=== PATIENT | male | born 1940 | race Caucasian/White ===

== ENCOUNTER 2016-08-29 16:43 | Inpatient (IN) | payer MEDICARE ==
--- NOTE | ~2016-08-29 | A ---
[facility] Nutrition Therapy DATE: 09/10/16 Patient: FELISHA MADRID Physician: VIVIANE Address: [address] [facility] Room/Bed: [address] [place] [address], Zip: [place] [address] Admit Date: 08/30/16 Date of : 38 Height: 5 4 Weight: 200 91 NUTRITIONAL ASSESSMENT: REASON: Seen for length of stay Admitting Dx: 75 y/o male admitted with AMS, abnormal labs, skin rash, round to have UTI and MARTIR (from jail) PMH: Dementia, behavior disorder, Afib, CHF, COPD, PVD, PNA Anthropometrics: Ht: 64", admission wt: 90 kg, current wt: 91 kg, BMI: 27 (overweight) Labs: BUN 25, Creat 1.5, GFR 44.3 Meds: Na bicarb, Fe gluconate, Colace, psych meds noted I/O & Bowel function: LBM 09/08 Skin Integrity: Non-blancheable redness coccyx, intact abrasion BLE Assessment: Chart reviewed, events noted. See admitting dx and PMH as stated above. RD assessing due to length of stay. [facility] resides at jail, is on 2L nasal cannula, is a poor historian. Patient more coherent today but still confused, lethargic, disoriented. Dr. Soria is following. Patient was on a regular texture diet until yesterday 09/09 due to dysphagia and CASINO ATTENDANT recs, is now on a pureed diet with thin liquids. Patient scored 0 points on the malnutrition risk screen. Aide is feeding him lunch at this time, RN states the aide said the patient ate most of his breakfast and is doing good on lunch so far, is still eating. See RD recs below, will follow hospital course. Dx: Chewing/swallowing difficulty r/t clinical condition, AMS AEB need for pureed diet. Intervention: Diet per CASINO ATTENDANT Monitoring, Evaluation and Goals: 1. PO intake 50-100% of meals with no chewing/swallowing difficulties. 2. Prevent unintentional weight loss. 3. Improvement in BUN, creatinine, GFR. Monitor: Per protocol, criteria to determine if above goals met Recommendations: 1. Continue diet per CASINO ATTENDANT, currently requiring pureed diet. Advance diet texture as [facility] Nutrition Therapy DATE: 09/10/16 Patient: FELISHA MADRID Physician: VIVIANE Address: [address] [facility] Room/Bed: [address] [place] [address], Zip: [place] [address] Admit Date: 08/30/16 Date of : 38 Height: 5 4 Weight: 200 91 tolerated per CASINO ATTENDANT recs. 2. If PO intake declines to < 50% of meals please order Magic cup or Ensure pudding TID. RD will follow hospital course Mild-moderate nutrition risk Respectfully, Helena Hamilton RD, [facility] [employer] [facility] cc: client file
--- NOTE | ~2016-08-29 | CR21 ---
[facility] A Service of [facility] & [facility] RADIOLOGY TEXT RESULTS PATIENT: FELISHA MADRID LOCATION: [facility] 305-01 : 38 UNIT #: [id number] AGE: [address]: Ryan Varghese MD SEX: M ORDER DR: [id number] [facility] [address] [place], [place] [address] [id number] I MR#: [id number] Acc #: [id number] NAME: FELISHA MADRID : 1940 SEX: M STUDY DATE/TIME: 08/29/2016 20:22 UNIT: CEDOF ROOM: 50404 STUDY DESCRIPTION: CR Ankle Min 3 Views Rt Attending Physician: Ryan Varghese M.D. Ordering Physician: Ryan Varghese M.D. Primary Care Physician: Primary Care Physician No MEDICAL IMAGING REPORT This report is preliminary unless electronic signature is present EXAM Right ankle 3 views. HISTORY Ankle pain, weakness x1 week. Patient demented. FINDINGS 3 views of the right ankle demonstrates no acute fracture or deformity. Degenerative change is noted about the ankle. Generalized osteopenia. Ankle mortise appears maintained. Dictated by... Theresa Parker M.D. THIS IS AN ELECTRONICALLY VERIFIED REPORT Theresa Parker M.D. at 08/30/2016 2:03 PM GEORGINA/radha TD: 08/29/2016 22:25 JOB #: [id number] MEDICAL IMAGING REPORT Page 1 of 1 COPY
--- NOTE | ~2016-08-29 | CO ---
Unit #: [id number] #: [id number] Patient: SIENNA PEREZ [id number] [facility] [address] [place], [place] [address] [id number] I MR#: [id number] NAME: SIENNA PEREZ ROOM: 342 Age: 75 Sex: M Admission Date: 08/30/2016 : 1940 Attending Physician: Lor Rasmussen M.D. Primary Care Physician: Primary Care Physician No Consultation Date: 09/06/2016 CONSULTATION REPORT REASON FOR CONSULTATION Followup. DISCUSSION Mr. Sienna Perez is a 75-year-old male, seen in room 342, bed 1 on 09/06/2016 at [facility]. The patient does not have a sitter since yesterday, needing redirection but no aggression, compliant with medication, the patient is sleeping good, no side effects from medication, unable to give any coherent history, disorganized thought process. The patient's vital signs are temperature 97.8, pulse 81, respirations 17, blood pressure 151/96, oxygen saturation 94%. REVIEW OF SYSTEMS Complete review of systems unremarkable except for confusion. MENTAL STATUS EXAMINATION General appearance, the patient dressed in hospital attire. Attention span and concentration, poor. Speech, disorganized. Orientation in self. Mood and affect, labile. Thought process, circumstantial. Thought content, guarded and paranoid. Recent and remote memory, poor. Language, fair. Fund of knowledge, impaired. Insight and judgment, impaired. DIAGNOSIS Psychiatric: Major neurocognitive disorder secondary to Alzheimer disease with behavioral disturbances, F02.81. ASSESSMENT AND PLAN Supportive psychotherapy and psychoeducation provided to the patient, but the patient unable to comprehend much, explained to the nursing staff about the patient's medication and current behavior protocol. Continue with current medication. If needed, consider further adjustment of medication. Please feel free to call if any questions, telephone #[phone]. Dictated by.Marty Cardenas/yolanda TD: 09/06/2016 23:51 JOB #: [id number] Unit #: [id number] #: [id number] Patient: SIENNA PEREZ CONSULTATION REPORT Page 1 of 1 X Chavez Soria MD CONSULTATION REPORT
--- NOTE | ~2016-08-29 | CR72 ---
[facility] A Service of [facility] & [facility] RADIOLOGY TEXT RESULTS PATIENT: FELISHA MADRID LOCATION: [facility] 342-01 : 38 UNIT #: [id number] AGE: [address]: Ryan Varghese MD SEX: M ORDER DR: [id number] [facility] [address] [place], [place] [address] [id number] MR#: [id number] Acc #: [id number] NAME: FELISHA MADRID : 1940 SEX: M STUDY DATE/TIME: 08/29/2016 17:08 UNIT: [facility] ROOM: STUDY DESCRIPTION: CR Chest Single View Portable Attending Physician: Avery Samuel D.O. Ordering Physician: Avery Samuel D.O. Primary Care Physician: No Primary Care Physician MEDICAL IMAGING REPORT This report is preliminary unless electronic signature is present EXAM Portable AP view of the chest COMPARISON May 14, 2016. INDICATIONS A 75-year-old male with bilateral lower extremity edema and altered mental status today. FINDINGS Dual lead left chest pacemaker/defibrillator device appears stable. No evidence of complication. Sternotomy wires appear intact. Markers of CABG again noted. The lung volumes are diminished from comparison study with increased prominence of pulmonary interstitium. There is likely stable mild cardiomegaly. There is hazy attenuation over the left lung base which may reflect prominent breast and cardiac shadows. No evidence of pneumothorax. There is superior subluxation of both humeral heads which appear to have touched the undersurface of the acromion, perhaps artifactually related to apical lordotic positioning. IMPRESSION 1. Cardiomegaly. Changes of CABG. 2. Diminished lung volumes from comparison with increasing interstitial prominence throughout the lungs perhaps reflecting bronchovascular crowding but developing mild interstitial edema cannot be excluded. 3. Increased hazy attenuation over left lower chest which may be due to low lung volumes and prominent overlapping breast and cardiac shadows, but asymmetric edema, atelectasis, and even pneumonia cannot entirely be excluded in the left lower lobe. Similarly small left pleural effusion cannot be excluded. [facility] A Service of [facility] & [facility] RADIOLOGY TEXT RESULTS PATIENT: FELISHA MADRID LOCATION: [facility] 342-01 : 38 UNIT #: [id number] AGE: [address]: Ryan Varghese MD SEX: M ORDER DR: Dictated by... Garrett Pace M.D. THIS IS AN ELECTRONICALLY VERIFIED REPORT Garrett Pace M.D. at 09/03/2016 10:21 AM Leela TD: 08/29/2016 20:50 JOB #: [id number] MEDICAL IMAGING REPORT Page 1 of 1 COPY
--- NOTE | ~2016-08-29 | CO ---
Unit #: [id number] #: [id number] Patient: SIENNA PEREZ [id number] [facility] [address] [place], [place] [address] [id number] I MR#: [id number] NAME: SIENNA PEREZ ROOM: 342 Age: 75 Sex: M Admission Date: 08/30/2016 : 1940 Attending Physician: Lor Rasmussen M.D. Primary Care Physician: Primary Care Physician No Consultation Date: 09/08/2016 CONSULTATION REPORT REASON FOR CONSULTATION Followup. DISCUSSION Mr. Sienna Perez is a 75-year-old white male, seen in room 342, bed 1 on 09/08/2016 at [facility]. The patient was able to talk more coherently, but still confused. The patient's vital signs stable, redirectable, cooperative, no aggression. Vital signs; temperature 98.1, pulse 80, respiratory rate 18, blood pressure 150/79, oxygen saturation 94%. The patient was concerned about unable to walk due to the bandages and pain in his both bilateral feet. The patient did not show any aggression. REVIEW OF SYSTEMS Complete review of systems unremarkable except as mentioned above. MENTAL STATUS EXAMINATION General appearance, the patient dressed in hospital attire, lying comfortably in bed, made good eye contact. Attention span and concentration, poor. Speech, rapid but somewhat more coherent. Oriented in self. Mood and affect, labile. Thought process, circumstantial. Thought content, guarded, paranoid, but no aggressive behavior. Recent and remote memory, poor. Language, fair. Fund of knowledge, impaired. Insight and judgment, impaired. DIAGNOSIS Psychiatric: Major neurocognitive disorder secondary to Alzheimer disease with behavioral disturbances, F02.81. ASSESSMENT AND PLAN Recommending at this time to continue with current medication combination and we will consider adjusting if needed. Please feel free to call if any questions, telephone #[phone]. Dictated by... Chavez Soria M.D. RICHIE/yolanda TD: 09/10/2016 00:35 JOB #: [id number] Unit #: [id number] #: [id number] Patient: SIENNA PEREZ CONSULTATION REPORT Page 1 of 1 X Chavez Soria MD CONSULTATION REPORT
--- NOTE | ~2016-08-29 | US140 ---
[facility] A Service of [facility] & [facility] RADIOLOGY TEXT RESULTS PATIENT: FELISHA MADRID LOCATION: [facility] 342- : 38 UNIT #: [id number] AGE: [address]: Ryan Varghese MD SEX: M ORDER DR: [id number] [facility] [address] [place], [place] [address] [id number] I MR#: [id number] Acc #: [id number] NAME: FELISHA MADRID : 1940 SEX: M STUDY DATE/TIME: 09/01/2016 22:13 UNIT: [address] ROOM: [facility] STUDY DESCRIPTION: US UE Veins Unilat or Ltd Stdy Attending Physician: Ryan Varghese M.D. Ordering Physician: Lillie Cohen M.D. Primary Care Physician: Primary Care Physician No MEDICAL IMAGING REPORT This report is preliminary unless electronic signature is present EXAM Right upper extremity venous ultrasound HISTORY Right upper extremity swelling and redness for 1 day FINDINGS The venous system of the right upper extremity was evaluated with zayas-scale imaging, color flow Doppler and compression ultrasound where possible. The distal cephalic vein shows thrombosis. The other veins are all patent. IMPRESSION There is superficial venous thrombosis in the mid cephalic vein. Otherwise, the study is normal. Dictated by... Kenyon Chavez M.D. THIS IS AN ELECTRONICALLY VERIFIED REPORT Kenyon Chavez M.D. at 09/02/2016 9:56 PM FEL/to TD: 09/02/2016 17:40 JOB #: [id number] MEDICAL IMAGING REPORT Page 1 of 1 COPY
--- NOTE | ~2016-08-29 | CO ---
Unit #: [id number] #: [id number] Patient: SIENNA PEREZ [id number] [facility] [address] [facility]. [place], [place] [address] [id number] I MR#: [id number] NAME: SIENNA PEREZ ROOM: 342 Age: 75 Sex: M Admission Date: 08/30/2016 : 1940 Attending Physician: Ryan Varghese M.D. Consultation Date: 09/11/2016 CONSULTATION REPORT REASON FOR CONSULTATION Followup. DISCUSSION Mr. Sienna Perez is a 75-year-old male, seen on 09/11/2016, seen in room 342, bed 1 at [facility]. The patient was compliant, cooperative, redirectable, but still confused and guarded. The patient unable to give any reliable information. Vital signs; temperature 98, pulse 79, respirations 18, blood pressure 131/85, oxygen saturation 93%. The patient did not require any seclusion holding, compliant with medication. No side effects from medication. The patient's older adult social work specialist is currently working on placement. Message was sent to [facility]. REVIEW OF SYSTEMS Complete review of systems is unremarkable. MENTAL STATUS EXAMINATION General appearance; the patient dressed in hospital attire. Vital signs; temperature 98, pulse 79, respirations 18, blood pressure 131/85, oxygen saturation 93%. Attention span and concentration, poor. Speech, rambling. Oriented in self. Mood and affect, labile. Thought process, circumstantial. Thought content, guarded and paranoid. Recent and remote memory, poor. Language, fair. Fund of knowledge, impaired. Insight and judgment, impaired. DIAGNOSIS Psychiatric: Major neurocognitive disorder secondary to Alzheimer disease with behavioral disturbances, F02.81. ASSESSMENT AND PLAN Advised at this time to continue with current combination of medication. We will closely monitor. If needed, consider further adjustment of medication. The patient is currently on Remeron, melatonin, Risperdal. No side effects from medication. The patient has p.r.n. haloperidol. If needed, we will use. Please feel free to call if any questions telephone #[phone]. Dictated by... Chavez Soria M.D. RICHIE/yolanda Unit #: [id number] #: [id number] Patient: MERCYSIENNA TD: 09/12/2016 01:35 JOB #: [id number] CONSULTATION REPORT Page 1 of 1 X Chavez Soria MD CONSULTATION REPORT
--- NOTE | ~2016-08-29 | CO ---
Unit #: [id number] #: [id number] Patient: FELISHA PEREZ [id number] [address] [place], [place] [address] [id number] I MR#: [id number] NAME: FELISHA PEREZ ROOM: 342 Age: 75 Sex: M Admission Date: 08/30/2016 : 1940 Attending Physician: Ryan Varghese M.D. Primary Care Physician: Primary Care Physician No Consultation Date: 08/30/2016 CONSULTATION REPORT REASON FOR CONSULTATION Confusion, altered mental status. HISTORY OF PRESENT ILLNESS Mr. Gary Perez is a 75-year-old white male, seen in room 305, bed 1 on 08/30/2016. The patient is a resident of care home and transferred because of acute kidney injury, urinary tract infection, confusion, altered mental status. The patient's thoughts were disorganized, guarded, and paranoid. The patient was aggressive, needed Haldol 10 mg, Cogentin 1 mg, Ativan 1 mg last night. The patient's behavior was belligerent, disorganized behavior, disorganized thought process, impulsive, mood lability, unable to give any reliable information. PAST PSYCHIATRIC HISTORY Remarkable for history of dementia. MEDICAL HISTORY The patient has sepsis, skin rash, concerns about deep venous thrombosis, acute kidney injury, history of chronic diastolic heart failure, history of foot injury, considering delirium, benign prostatic hypertrophy, hyperlipidemia, and COPD. MEDICATIONS The patient is on lisinopril, metoprolol, Proventil, aspirin, divalproex 250 mg b.i.d., finasteride, hydrocodone/Tylenol, Combivent, MiraLax, Seroquel 12.5 mg by mouth every night, Senokot. ALLERGIES No known drug allergies. FAMILY HISTORY AND SOCIAL HISTORY The patient is a resident of care home. No known history of any abuse. No history of any substance abuse. REVIEW OF SYSTEMS Complete review of systems is remarkable for agitation and aggression, otherwise unremarkable. MENTAL STATUS EXAMINATION General appearance, the patient dressed in hospital attire, somewhat disheveled. Attention span and concentration, poor. Speech, rapid and rambling. Orientation in self. Mood and affect, labile. Thought process, circumstantial. Thought content, guarded and paranoid. Recent and remote memory, poor. Language, the patient has rambling speech and Unit #: [id number] #: [id number] Patient: FELISHA PEREZ fair language. Fund of knowledge, poor. Insight and judgment, impaired. DIAGNOSES Psychiatric: Delirium, F05; probable major neurocognitive disorder secondary to Alzheimer disease with behavioral disturbances, F02.81. Secondary diagnosis: Deferred. Medical diagnosis: Please refer to H and P. Stressors: Psychosocial stressor. ASSESSMENT AND PLAN 1. Supportive psychotherapy and psychoeducation provided to the patient, but the patient unable to comprehend much. 2. Advised at this time to continue with current treatment with a plan to start the patient on Risperdal 1 mg b.i.d. and Haldol 5 mg q.4 p.r.n. for severe agitation and psychosis. Please feel free to call if any questions, telephone #[phone]. Dictated by... Marty Milian/yolanda TD: 09/01/2016 04:02 JOB #: [id number] CONSULTATION REPORT Page 1 of 1 X Chavez Soria MD X CONSULTATION REPORT
--- NOTE | ~2016-08-29 | XA166 ---
[facility] A Service of [facility] & [facility] RADIOLOGY TEXT RESULTS PATIENT: FELISHA MADRID LOCATION: [facility] 342- : 38 UNIT #: [id number] AGE: [address]: Ryan Varghese MD SEX: M ORDER DR: [id number] [facility] [address] [place], [place] [address] [id number] I MR#: [id number] Acc #: [id number] NAME: FELISHA MADRID : 1940 SEX: M STUDY DATE/TIME: 09/12/2016 15:32 UNIT: C3A PCU ROOM: [facility] STUDY DESCRIPTION: XA PICC Line Placement WO Port Attending Physician: Ryan Varghese M.D. Ordering Physician: Ryan Varghese M.D. Primary Care Physician: No Primary Care Physician MEDICAL IMAGING REPORT This report is preliminary unless electronic signature is present EXAM PICC placement with ultrasound and fluoroscopic guidance 09/12/2016 HISTORY Venous access needed for medication. TECHNIQUE The procedure was explained to the patient's counter sales representative. Informed consent was obtained from patient's family. Full barrier sterile technique was employed via standard protocol. Using full barrier sterile technique and following local anesthesia with 1% Xylocaine, a brachial vein was punctured above the elbow on the right with ultrasound guidance. Ultrasound was used to confirm vessel patency which was confirmed and permanent ultrasound images were recorded. An 0.018 guidewire was passed into the superior vena cava under fluoroscopic guidance. A dilator and sheath were placed over the wire. A 4-Hong Konger single-lumen PICC was measured to 41 cm, cut and deployed with the tip positioned at the cavoatrial junction. The line was secured in place with an antibiotic patch and adhesive dressing. Total fluoroscopy time 0.2 minutes with a total dose of 2 mGy. IMPRESSION Successful placement of a 4-H[place] Konger single-lumen PICC via the right brachial vein above the elbow with ultrasound and fluoroscopic guidance. Dictated by... Momo Jimenes M.D. THIS IS AN ELECTRONICALLY VERIFIED REPORT Momo Jimenes M.D. at 09/13/2016 10:23 PM RLJunior/fortino [facility] A Service of [facility] & [facility] RADIOLOGY TEXT RESULTS PATIENT: FELISHA MADRID LOCATION: [facility] 342-01 : 38 UNIT #: [id number] AGE: [address]: Ryan Varghese MD SEX: M ORDER DR: TD: 09/12/2016 18:24 JOB #: [id number] MEDICAL IMAGING REPORT Page 1 of 1 COPY
--- NOTE | ~2016-08-29 | US84 ---
[id number] [facility] [address] [place], [place] [address] [id number] I MR#: [id number] Acc #: [id number] NAME: FELISHA MADRID : 1940 SEX: M STUDY DATE/TIME: 08/30/2016 8:18 UNIT: C3A PCU ROOM: 305 STUDY DESCRIPTION: US LE Veins Complete Edwardo Stdy Attending Physician: Ryan Varghese M.D. Ordering Physician: Ryan Varghese M.D. Primary Care Physician: Primary Care Physician No MEDICAL IMAGING REPORT This report is preliminary unless electronic signature is present EXAM Bilateral lower extremity venous duplex, 08/30/2016 HISTORY Bilateral lower extremity edema for 2 days. Evaluate for deep vein thrombosis. TECHNIQUE Venous ultrasound examination of both lower extremities was performed using grayscale, spectral Doppler and color flow Doppler imaging. FINDINGS The examination is negative. There is no evidence of deep venous thrombus from the groin to the lower calf bilaterally. Visualized greater saphenous veins are also patent. IMPRESSION Negative examination. No evidence of bilateral lower extremity deep venous thrombosis. Dictated by... Jc Yadav M.D. THIS IS AN ELECTRONICALLY VERIFIED REPORT Jc Yadav M.D. at 08/31/2016 9:33 AM ANTIONETTE/lilli TD: 08/30/2016 11:29 JOB #: [id number] MEDICAL IMAGING REPORT Page 1 of 1 COPY
--- NOTE | ~2016-08-29 | HP ---
Unit #: [id number] #: [id number] Patient: FELISHA MADRID [id number] [address] [place], [place] [address] [id number] I MR#: [id number] NAME: FELISHA MADRID ROOM: 60698 Age: 75 Sex: M Admission Date: 08/29/2016 : 1940 Attending Physician: Ryan Varghese M.D. HISTORY AND PHYSICAL CHIEF COMPLAINT Altered mental status, abnormal labs, skin rash. HISTORY OF PRESENTING ILLNESS Patient is a 75-year-old man who is a resident of a snf who was transferred because of acute kidney injury, urinary tract infection, and altered mental status. The patient is a poor historian. He is confused and unable to provide a history. All the history is obtained by reviewing the records and by talking to the ER staff. Patient has a past medical history of dementia, atrial fibrillation, COPD, congestive heart failure, chronic indwelling Brito catheter secondary to benign prostatic hypertrophy, peripheral vascular disease, history of coronary artery disease, and history of acute on chronic diastolic heart failure, who was transferred from the snf mainly because his creatinine had jumped up, and he was noted to have a petechial rash in the right lower extremity. He is agitated. There was also a concern for a DVT in the right leg, and for further evaluation, an ultrasound was attempted. Apparently, patient was belligerent, and he was combative, and unfortunately an ultrasound was not done so far. On initial evaluation, urinalysis showed enumerable WBCs, and his creatinine was noted to be high up to 2.1, whereas his baseline creatinine is 1 in April 2016, and for altered mental status, urinary tract infection, and sepsis, he is getting admitted. PAST MEDICAL HISTORY As per the records from [facility], history of COPD, history of diastolic heart failure, acute on chronic, history of pneumonia, history of peripheral vascular disease, coronary artery disease, history of acute cystitis, history of BPH with a chronic indwelling Brito catheter, atrial fibrillation, COPD, and dementia. MEDICATIONS I am trying to get a list of his medications from the snf. The medications from the [facility] where he was hospitalized in June include ferrous sulfate 325 mg p.o. daily, lisinopril 10 mg daily, metoprolol 100 mg daily, Proventil 90 mcg inhaler twice daily, aspirin 81 mg daily, Lipitor 40 mg daily, budesonide and formoterol 160/4.5 mcg twice daily, divalproex 250 mg by mouth twice daily, Colace 2 tabs daily, finasteride 5 mg by mouth daily, hydrocodone/Tylenol 5/325 at 1 tab q.6 p.r.n., Combivent, melatonin 3 mg daily, Lasix 40 mg daily, MiraLax 17 grams daily, Seroquel 25 mg, 12.5 mg by mouth every night, Senokot 2 tabs daily, and Flomax 0.4 mg daily. Unit #: [id number] #: [id number] Patient: FELISHA MADRID ALLERGIES I did not find a list of his allergies. Will try to get more records from the snf. SOCIAL HISTORY He is a resident of a snf. REVIEW OF SYSTEMS Unobtainable. PHYSICAL EXAMINATION VITAL SIGNS: Temperature 97.4, pulse rate 85, respiratory rate 16, and blood pressure 154/91. GENERAL: Patient is agitated, alert only to his name. HEENT: Normocephalic and atraumatic. No icterus. Pupils are equal, round, and reactive to light and accommodation. Extraocular muscles intact. NECK: Supple. No JVD. HEART: S1 and S2, regular rate and rhythm. CHEST: Bilateral equal air entry, clear to auscultation. ABDOMEN: Soft and nontender. EXTREMITIES: Normal peripheral pulses. He does have a petechial rash on both the lower extremities and mild edema. DIAGNOSTIC STUDIES LABORATORY: Glucose 90, BUN 46, creatinine 2.1, sodium 137, potassium 3.8, chloride 101, and bicarb 29. WBC 9.9, hemoglobin 10.4, and platelet count is 192,000 with 75% neutrophils and 16.6 lymphocytes. Urinalysis shows leukocyte esterase 3+, nitrite positive, 2+ protein, and enumerable WBCs. ASSESSMENT AND PLAN 1. Sepsis secondary to urinary tract infection, possibly gram negative organisms secondary to chronic indwelling Brito catheter. Will send blood cultures and urine cultures. Empirically start him on levofloxacin. Will dose him renally and monitor. 2. Skin rash. I think it could be secondary to sepsis at this point. Will start him on levofloxacin and monitor. If the rash does not improve, will consider obtaining a Dermatology evaluation. 3. Concern for deep venous thrombosis. Will try to sedate him and try to get an ultrasound of the lower extremities. Will start him empirically on therapeutic Lovenox. Will review and ultrasound and stop if it is negative. 4. Acute kidney injury. I am holding his Lasix. I will hold his VITALY inhibitors. Will start him gently on fluids and monitor. Kindly note, he also has heart failure. Will try to be cautious not to overload him with fluids. 5. History of acute on chronic diastolic heart failure. Will be gentle with the IV fluids. 6. Concern for foot injury. Will check x-rays of the feet to make sure there is no fracture. 7. Delirium with dementia, possibly his baseline versus secondary to urinary tract infection. Will also consult Psychiatry. Will continue with his Seroquel and monitor. 8. Benign prostatic hypertrophy, currently with a Brito catheter. Possibly may need to change the catheter. Will consult Urology. 9. Deep venous thrombosis precautions. 10. Hyperlipidemia. Continue with statin. Unit #: [id number] #: [id number] Patient: FELISHA MADRID 11. History of chronic obstructive pulmonary disease, currently stable. 12. Further recommendations per hospital course. Dictated by Marty Johnson/emma TD: 08/29/2016 21:49 JOB #: [id number] HISTORY AND PHYSICAL Page 1 of 1 X X HISTORY AND PHYSICAL
--- NOTE | ~2016-08-29 | CO ---
Unit #: [id number] #: [id number] Patient: FELISHA PEREZ [id number] [facility] [address] [facility]. [place], [place] [address] [id number] I MR#: [id number] NAME: FELISHA PEREZ ROOM: 342 Age: 75 Sex: M Admission Date: 08/30/2016 : 1940 Attending Physician: Ryan Varghese M.D. Primary Care Physician: No Primary Care Physician Consultation Date: 09/12/2016 CONSULTATION REPORT REASON FOR CONSULTATION Followup. DISCUSSION Mr. Gary Perez is a 75-year-old white male seen in room 342, bed 1, on 09/12/2016 at [facility]. The patient has a history of dementia, admitted with urinary tract infection and sepsis. The patient is making progress. No seclusion holdings or any restraints. Compliant with medications, but still with confusion, but redirectable easily. Vitals are 98.4, 74, 20, 148/100, oxygen saturation 94%. The patient will be going to [facility] today. No side effects from medication. Complete review of systems is unremarkable. MENTAL STATUS EXAMINATION General appearance, the patient is dressed in hospital attire, lying comfortably in bed. Attention span and concentration poor. Speech disorganized. Rambling. Orientation to self. Mood and affect labile. Thought process circumstantial. Thought content guarded. Recent and remote memory poor. Language poor. Fund of knowledge impaired. Insight and judgment impaired. 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 F02.81. ASSESSMENT/PLAN Recommending at this time to continue with the current medication. The patient is to continue with Valproic acid 50 mg q.8 h., Remeron 50 mg at bedtime, haloperidol 5 mg q.4 h. p.r.n. psychosis, Seroquel 12.5 mg at bedtime, Risperdal 1 mg b.i.d. If needed, consider further adjustment of medication. Please feel free to call. Dictated by... Marty Milian TD: 09/13/2016 08:13 JOB #: [id number] Unit #: [id number] #: [id number] Patient: RODRIGO PEREZEDAJanette CONSULTATION REPORT Page 1 of 1 X Chavez Soria MD CONSULTATION REPORT
--- NOTE | ~2016-08-29 | DS ---
Unit #: [id number] #: [id number] Patient: FELISHA MADRID [id number] [address] [place], [place] [address] [id number] I MR#: [id number] NAME: FELISHA MADRID ROOM: [facility] Age: 75 Sex: M Admission Date: 08/30/2016 : 1940 Discharge Date: 09/12/2016 Attending Physician: Ryan Varghese M.D. Primary Care Physician: Sarah Primary Care Physician DISCHARGE SUMMARY ADDENDUM ADMITTING DIAGNOSES 1. Sepsis secondary to methicillin-resistant Staphylococcus aureus urinary tract infection. 2. Enterobacter bacteremia. 3. Chronic urinary retention. 4. Dementia with agitation. 5. Acute kidney injury. 6. History of atrial fibrillation. 7. History of congestive heart failure. 8. Peripheral vascular disease. 9. Benign prostatic hypertrophy. Kindly note there is a discharge summary dictated by Dr. Rasmussen and this is an addendum to the previous discharge summary. CONSULTANTS 1. Dr. Sigifredo Islas, lan administrator. 2. Dr. Tera Herbert, Infectious Disease. 3. Dr. Chavez Soria, Psychiatry. HISTORY OF PRESENTING ILLNESS The patient is a 75-year-old man who is a resident of group home, was transferred because of acute kidney injury, urinary tract infection and altered mental status. The patient is a poor historian. He is confused and unable to provide any history. In the initial workup, his creatine was high up to 2.1. He was noted to have a urinary tract infection and he was started on antimicrobials and judd cultures were obtained. HOSPITAL COURSE The further workup revealed him having an Enterococcal bacteremia. He also had a urinary tract infection with MRSA. He developed nephrotoxicity with vancomycin and tobramycin while he was getting treated for Enterococcal bacteremia and his tobramycin was stopped. Currently, with vancomycin, his creatinine is around 1.7, 1.6. Nephrology was following the patient. A transesophageal echocardiogram was attempted and unsuccessful secondary to his agitation and confusion. ID recommended to continue with vancomycin until the September. While he is on vancomycin, he needs to get his BMP checked every three days and, if the creatinine is beyond 1.8, the plan is to switch to daptomycin in case if he develops nephrotoxicity secondary to vancomycin. I am unable to reach the family today. I spoke with the patient's nurse. He is at his baseline in his mental status. Unit #: [id number] #: [id number] Patient: FELISHA MADRID On the day of the discharge, his physical examination: GENERAL APPEARANCE: The patient is alert, confused. VITAL SIGNS: Temperature 98.6. Pulse rate 82. Respirations 20. Blood pressure 158/100. HEENT: Normocephalic, atraumatic. No icterus. PERRLA. Extraoculars intact. NECK: Supple. No JVD. HEART: S1, S2 regular. CHEST: Bilateral equal air entry. Clear to auscultation. ABDOMEN: Soft, nontender. EXTREMITIES: No edema. Normal pulses. DISCHARGE MEDICATIONS 1. Proventil two puffs q.4 p.r.n. for shortness of breath. 2. Combivent 3 mL q.4 p.r.n. for shortness of breath. 3. Pulmicort 0.5 mg nebulization twice a day. 4. Perforomist 20 mcg twice a day. 5. Sodium bicarb 650 mg p.o. three times a day. 6. Flomax 0.4 mg at bedtime. 7. Tylenol p.r.n. 8. Lovenox 30 mg subcu daily. 9. Valproic acid 250 mg p.o. q.8 hours. 10. Remeron 15 mg at bedtime. 11. Vancomycin until the September. 12. Hydralazine 50 mg p.o. q.8 hours. 13. Ferrous sulfate 325 mg p.o. daily. 14. Proscar 5 mg p.o. daily. 15. Melatonin 3 mg at bedtime. 16. Aspirin 81 mg daily. 17. Haldol 5 mg q.4 p.r.n. for psychosis. 18. Seroquel 12.5 mg p.o. at bedtime. 19. Risperdal 1 mg p.o. twice a day. 20. Metoprolol 100 mg p.o. twice a day. 21. Colace 100 mg twice a day. 22. Lipitor 40 mg at bedtime. 23. Clonidine 0.2 mg p.o. twice a day. He will be discharged to rehab today for further care. Total time spent in his care 35 minutes. I did talk to Dr. Islas. He is agreeable for placement of PICC line and will request the rehab to remove the PICC line after he is done with the antimicrobials. The patient needs to follow up with Dr. Islas as an outpatient for his chronic kidney disease. Dictated by... Marty Johnson TD: 09/12/2016 13:45 JOB #: [id number] Unit #: [id number] #: [id number] Patient: FELISHA MADRID DISCHARGE SUMMARY Page 1 of 1 X X DISCHARGE SUMMARY
--- NOTE | ~2016-08-29 | CO ---
Unit #: [id number] #: [id number] Patient: FELISHA MADRID [id number] [address] [place], [place] [address] [id number] I MR#: [id number] NAME: FELISHA MADRID ROOM: 342 Age: 75 Sex: M Admission Date: 08/30/2016 : 1940 Attending Physician: Lor Rasmussen M.D. Primary Care Physician: No Primary Care Physician Consultation Date: 09/05/2016 CONSULTATION REPORT REASON FOR CONSULTATION Enterococcal bacteremia. HISTORY OF PRESENT ILLNESS This is a 75-year-old male who is unable to provide any history as he appears to be confused. Patient states to me, "watch out for the tank behind you." Patient is a senior care resident and was admitted to the hospital for acute kidney injury, urinary tract infection, altered mental status, however, it was noted that patient has a history of dementia as well. Patient was not having any fever or leukocytosis but workup showed MRSA UTI and Enterococcal bacteremia that has been persistent. Repeat blood cultures are currently pending and ID was asked to evaluate. On admission he was noted to have some rash over the lower extremities. PAST MEDICAL HISTORY Includes atrial fibrillation, COPD, congestive heart failure, chronic indwelling Brito catheter secondary to BPH, peripheral vascular disease, coronary artery disease, heart failure. ALLERGIES Penicillin with unknown reaction, codeine, and fish derivative. MEDICATIONS Vancomycin and tobramycin. Further medications please refer to patient's MAR. SOCIAL HISTORY The patient lives in a senior care, otherwise unknown. REVIEW OF SYSTEMS Unobtainable secondary to patient's current mental status. PHYSICAL EXAMINATION VITAL SIGNS: Temperature 98.2, pulse 78, blood pressure 121/57, respiratory rate 18. GENERAL: This is a no apparent distress male who appears confused, sitting in bed. HEENT: His pupils are equal. NECK: Supple. CARDIOVASCULAR: S1 and S2. Regular rate and rhythm. PULMONARY: Clear to auscultation bilaterally with no wheezes or rhonchi noted. ABDOMEN: Positive bowel sounds, soft and nontender. EXTREMITIES: No clubbing, cyanosis or edema. No significant rashes Unit #: [id number] #: [id number] Patient: FELISHA MADRID noted. He has no significant sacral wound or other nonhealing wounds. DIAGNOSTIC STUDIES LABS: BUN 29, creatinine 1.6, which is improved from 2.1, sodium 139, potassium 3.7, chloride 111, CO2 21, bilirubin 0.5, AST 24, ALT 13. BNP not checked. Lactic acid 1.5, White blood cell count 7.0, hemoglobin 9.4, hematocrit 30.1, platelets 162. Urinalysis shows enumerable WBC with positive rbc's, 3+ leuks, positive nitrates. Cultures reveal Enterococcus 2/2 sets on 08/29/2016 with MRSA in the urine. 08/31/2016 blood culture 1 of 2 with enterococcus and blood cultures from 09/04/2016 are currently pending. IMAGING STUDIES: Shows a super venous thrombosis in the cephalic vein, otherwise negative ultrasound of both the upper and lower extremities. Chest x-ray shows cardiomegaly, bronchovascular crowding with interstitial edema not excluded. CARDIOLOGY STUDIES: 2D echo shows no vegetation noted. Mild to moderate aortic regurg, mild to moderate MR, mild tricuspid regurg, pacer in AICD leads noted. IMPRESSION This is a 75-year-old senior care resident who came to the hospital with worsening mental status changes and acute kidney injury, found to have an MRSA urinary tract infection, as well as multiple blood cultures for Enterococcus. At this time the 2D echocardiogram was negative, however, will likely recommend that patient have a REGAN to rule out pacemaker endocarditis or valvular endocarditis secondary to enterococcus. The patient has benign abdominal exam, however, due to the presence of persistent enterococcus bacteremia, would recommend a CT scan with p.o. contrast only due to patient's kidney function to evaluate any abscess or source of bacteremia. Patient's kidney injury does make it difficult for antibiotic selection. He also has a penicillin allergy and it is unknown if patient can take any betalactamase. Will continue to pulse dose vancomycin until further information is done regarding his penicillin allergy, an alternative regimen for his enterococcal bacteremia could be ampicillin and ceftriaxone. This case will be discussed in detail with Dr. Tera Herbert, who will evaluate this patient today, and further recommendations to follow pending patient's clinical course. Dictated by... Lottie Russo A.P.R.N. for Marty Amado/alexis TD: 09/05/2016 12:39 JOB #: [id number] Unit #: [id number] #: [id number] Patient: FELISHA MADRID CONSULTATION REPORT Page 1 of 1 X X CONSULTATION REPORT
--- NOTE | ~2016-08-29 | CO ---
Unit #: [id number] #: [id number] Patient: FELISHA MADRID [id number] [address] [place], [place] [address] [id number] I MR#: [id number] NAME: FELISHA MADRID ROOM: 342 Age: 75 Sex: M Admission Date: 08/30/2016 : 1940 Attending Physician: Lor Rasmussen M.D. Primary Care Physician: Primary Care Physician No Consultation Date: 09/07/2016 CONSULTATION REPORT REASON FOR CONSULTATION Elevated creatinine level. HISTORY OF PRESENT ILLNESS The patient is a 75-year-old white male, transferred to the hospital with sepsis. Blood cultures positive for Enterococcus and MRSA UTI. The patient has also known to have paroxysmal atrial fibrillation, peripheral vascular disease, history of BPH, history of congestive heart failure. The baseline creatinine previously has ranged around 1 to 1.5. Currently, the creatinine level is 1.5. The patient is not noted to be on any VITALY inhibitors. No use of NSAIDs. No recent IV contrast. The history is not reliably available. The patient currently has been started on IV vancomycin and the level is noted to be 19. The previously noted ejection fraction has been around 15% to 20% on echocardiogram. The patient has been started on IV fluids. The tobramycin level is elevated at 3.4 on 09/05/2016, which has now been discontinued. PAST MEDICAL HISTORY Significant for; 1. Congestive heart failure, ejection fraction 15% to 20%. 2. Chronic atrial fibrillation. 3. COPD. 4. History of BPH with indwelling Brito on a chronic basis. 5. Peripheral vascular disease. 6. Coronary artery disease. 7. CKD with likely underlying chronic kidney disease stage 3 secondary to hypertensive nephrosclerosis, although at risk of paraproteinemia. ALLERGIES Penicillin and codeine. MEDICATIONS Previously noted tobramycin and vancomycin. SOCIAL HISTORY The patient is a care home resident. REVIEW OF SYSTEMS Not reliably available. The patient is confused. PHYSICAL EXAMINATION VITAL SIGNS: Significant for temperature of 98.2, pulse 78 per minute, and blood pressure 121/57. HEENT: Head is atraumatic. Extraocular movements are intact. Unit #: [id number] #: [id number] Patient: FELISHA MADRID NECK: Supple. There is no elevation of JVD. CHEST: Clear. Air entry is equal bilaterally. Breathing is vesicular in nature. HEART: S1 and S2 audible. There is no S3, no S4. ABDOMEN: Soft. There is no organomegaly. No guarding. No rigidity. No rebound tenderness. EXTREMITIES: There is 1+ edema. DIAGNOSTIC STUDIES LABORATORY RESULTS: Admission creatinine level is 2.1 with BUN of 29, sodium 139, potassium 3.7, chloride 111, CO2 of 21, bilirubin is 0.5. Lactic acid is 1.5. WBC 7, hemoglobin 9, hematocrit 30, platelets 162. Urinalysis with positive nitrites. Blood culture, previously Enterococcus with urine MRSA. IMPRESSION 1. Acute kidney injury at high risk of developing vancomycin and tobramycin toxicity. Currently, renal function is stable. We will gently hydrate and then discontinue since the patient has significant underlying cardiomyopathy. 2. CMP. 3. Atrial fibrillation. 4. Enterococcus sepsis. 5. Methicillin-resistant Staphylococcus aureus urinary tract infection. Dictated by... Marty Campoverde TD: 09/09/2016 02:41 JOB #: [id number] CONSULTATION REPORT Page 1 of 1 X Sigifredo Islas MD X CONSULTATION REPORT
--- NOTE | ~2016-08-29 | CO ---
Unit #: [id number] #: [id number] Patient: SIENNA PREEZ [id number] [facility] [address] [facility]. [place], [place] [address] [id number] I MR#: [id number] NAME: SIENNA PEREZ ROOM: 342 Age: 75 Sex: M Admission Date: 08/30/2016 : 1940 Attending Physician: Lor Rasmussen M.D. Primary Care Physician: Primary Care Physician No Consultation Date: 09/04/2016 CONSULTATION REPORT REASON FOR CONSULTATION Followup. DISCUSSION Mr. Sienna Perez is a 75-year-old male, seen in room 342, bed 1 on 09/04/2016 at [facility]. The patient has a sitter. Cooperative, redirectable, but disorganized thought process and behavior, confused, but needing redirection. The patient is compliant with medication, but still having some difficulty in taking medication. The patient was unable to give any coherent history. Obtained information from nursing staff and sitter. The patient's vital signs; temperature 97.9, pulse 79, respirations 18, blood pressure 150/75, oxygen saturation 95%. REVIEW OF SYSTEMS Complete review of systems is unremarkable except for confusion and agitation. MENTAL STATUS EXAMINATION General appearance; the patient dressed casually in hospital attire. Hygiene and grooming, fair to poor. Attention span and concentration, poor. Speech; rapid, disorganized. Oriented in self. Mood and affect, labile. Thought process, circumstantial. Thought content; guarded, paranoid, unable to answer question about suicidal or homicidal ideation. Recent and remote memory, poor. Language, poor. Fund of knowledge, impaired. Insight and judgment, impaired. DIAGNOSIS Psychiatric: Major neurocognitive disorder secondary to Alzheimer disease with behavioral disturbances, F02.81. ASSESSMENT AND PLAN Advised to continue with current medication and one-on-one monitoring for safety of the patient. Continue with current medication. If needed, consider further adjustment of medication. Please feel free to call if any questions, telephone #[phone]. Dictated by... Marty Milian/yolanda TD: 09/06/2016 02:55 Unit #: [id number] #: [id number] Patient: SIENNA PEREZ JOB #: [id number] CONSULTATION REPORT Page 1 of 1 X Chavez Soria MD CONSULTATION REPORT
--- NOTE | ~2016-08-29 | CO ---
Unit #: [id number] #: [id number] Patient: FELISHA PEREZ [id number] [address] [place], [place] [address] [id number] I MR#: [id number] NAME: FELISHA PEREZ ROOM: [facility] Age: 75 Sex: M Admission Date: 08/30/2016 : 1940 Attending Physician: Ryan Varghese M.D. Primary Care Physician: Primary Care Physician No Consultation Date: 08/31/2016 CONSULTATION REPORT REASON FOR CONSULTATION Followup. DISCUSSION Mr. Gary Perez is a 75-year-old white male, seen in room 305, bed 1 on 08/31/2016. The patient was in bilateral hand restraints. The patient continues to try to pull tubes, agitated, aggressive, impulsive. The patient needed restraint for safety. Unable to give any reliable information. Vital signs; temperature 98.8, pulse 80, respirations 18, blood pressure 150/86, oxygen saturation 92#. The patient has not shown much improvement with current medication. The patient's sister has a power of hospital account liaison. REVIEW OF SYSTEMS Complete review of systems is unremarkable. MENTAL STATUS EXAMINATION General appearance; the patient dressed in hospital attire, needing bilateral restraints, disorganized thought process, disorganized behavior. Attention span and concentration, poor. Speech, rambling. Orientation in self. Mood and affect, labile. Thought process, circumstantial. Thought content; guarded, paranoid, but denied any thoughts of harming self or others. Recent and remote memory, poor. Language is fair. Fund of knowledge, impaired. Insight and judgment, impaired. DIAGNOSES Psychiatric: Delirium, F05; major neurocognitive disorder secondary to Alzheimer disease with behavioral disturbances, F02.81. ASSESSMENT/PLAN Advised to continue with current medication and therapeutic protocol. If needed, consider further adjustment of medication. Explained to the nursing staff to use haloperidol p.r.n. for agitation, psychosis. The patient is currently on Remeron and Risperdal. If needed, consider further adjustment of medication. Please feel free to call if any questions, telephone #[phone]. Dictated by... Marty Milian/yolanda TD: 09/01/2016 05:42 Unit #: [id number] #: [id number] Patient: RODRIGO PEREZDUSTIN JOB #: [id number] CONSULTATION REPORT Page 1 of 1 X Chavez Soria MD CONSULTATION REPORT
--- NOTE | ~2016-08-29 | CO ---
Unit #: [id number] #: [id number] Patient: FELISHA PEREZ [id number] [facility] [address] [facility] [place] [facility]. [place], [place] [address] [id number] I MR#: [id number] NAME: FELISHA PEREZ ROOM: 342 Age: 75 Sex: M Admission Date: 08/30/2016 : 1940 Attending Physician: Ryan Varghese M.D. Consultation Date: 09/03/2016 CONSULTATION REPORT REASON FOR CONSULTATION Followup. DISCUSSION Mr. Gary Perez is a 75-year-old male seen in room 342, bed 1 at [facility]. The patient has a sitter. The patient still confused, disorganized behavior, disorganized thought process, but cooperative and redirectable. The patient did not require any seclusion or holding. Easily redirectable, still having periods of time and he scratches. Vital signs; temperature 98.7, pulse 79, respirations 20, blood pressure 134/80, oxygen saturation 96%. The patient's nursing staff trying to start a new IV line for the patient. REVIEW OF SYSTEMS Complete review of systems is remarkable for confusion, agitation. MENTAL STATUS EXAMINATION Vital signs; temperature 98.7, pulse 79, respirations 20, blood pressure 134/80, oxygen saturation 96%. General appearance, the patient dressed casually in hospital attire. Attention span and concentration, poor. Speech, rambling. Orientation in self. Mood and affect were labile. Thought process, circumstantial. Thought content, guarded and paranoid. Recent and remote memory, poor. Language, fair. Fund of knowledge, impaired. Insight and judgment, impaired. DIAGNOSIS Psychiatric: Major neurocognitive disorder secondary to Alzheimer disease with behavioral disturbances, F02.81. ASSESSMENT/PLAN Advised to continue with current medications and continue with one-to-one monitoring for safety of the patient. The patient is on Remeron, melatonin, Risperdal. Tolerating medication fairly well, no side effects from medication. Please feel free to call if any questions, telephone #[phone]. Dictated by... Chavez Soria M.D. RICHIE/yolanda TD: 09/03/2016 23:19 JOB #: [id number] Unit #: [id number] #: [id number] Patient: FELISHA PEREZ CONSULTATION REPORT Page 1 of 1 X Chavez Soria MD CONSULTATION REPORT
--- NOTE | ~2016-08-29 | TOC ---
Unit #: [id number] #: [id number] Patient: FELISHA MADRID [id number] [facility] [address] [facility]. [place], [place] [address] [id number] Prasad MR#: [id number] NAME: FELISHA MADRID ROOM: 342 Age: 75 Sex: M Admission Date: 08/30/2016 : 1940 Attending Physician: Lor Rasmussen M.D. Primary Care Physician: No Primary Care Physician TRANSFER OF CARE SUMMARY DIAGNOSIS ON ADMISSION Sepsis secondary to acute urinary tract infection. DIAGNOSES ON DISCHARGE 1. Acute Enterococcal bacteremia. 2. Acute methicillin-resistant Staphylococcus aureus urinary tract infection. 3. Chronic urinary retention. 4. Dementia with agitation. 5. Acute kidney injury. 6. History of atrial fibrillation. 7. History of congestive heart failure. 8. Peripheral vascular disease. 9. Benign prostatic hypertrophy. HOSPITAL COURSE This 75-year-old patient was admitted to [facility] on 08/29 with sepsis secondary to UTI. Please make note that the patient was being seen by my partner, Dr. Varghese, and I have seen the patient for the last two to three days. Acute MRSA UTI: The patient was treated with IV vancomycin. Acute Enterococcal bacteremia: The patient has been seen by Dr. Herbert in consultation. A REGAN was attempted but patient was noncompliant and it was not done. The patient's repeat blood culture is negative. Acute kidney injury: The patient was on tobramycin and vancomycin. Tobramycin was discontinued. The creatinine is being monitored closely. History of congestive heart failure: The patient's ejection fraction is 15 to 20% and it is compensated. Chronic urinary retention: The patient has a Brito. Dementia with behavior disorder: The patient was seen by Dr. Soria in consultation and is being treated. The rest of the hospital course will be as per my partners. I have tried to call the patient's sister but was not able to reach. The staff told me that she is not feeling well. The further hospital course will be dictated by my partners. Unit #: [id number] #: [id number] Patient: FELISHA MADRID Dictated by... Marty Khoury/debbie TD: 09/07/2016 09:58 JOB #: [id number] TRANSFER OF CARE SUMMARY Page 1 of 1 X Lor Rasmussen MD TRANSFER OF CARE SUMMARY
--- NOTE | ~2016-08-29 | CT4 ---
[facility] A Service of [facility] & [facility] RADIOLOGY TEXT RESULTS PATIENT: FELISHA MADRID LOCATION: C3A 342- : 38 UNIT #: [id number] AGE: [address]: Lor Rasmussen MD SEX: M ORDER DR: [id number] [facility] [address] [facility]. [place], [place] [address] [id number] I MR#: [id number] Acc #: [id number] NAME: FELISHA MADRID : 1940 SEX: M STUDY DATE/TIME: 09/05/2016 17:22 UNIT: C3A PCU ROOM: [facility] STUDY DESCRIPTION: CT Abd and Pelv Wo Cont Attending Physician: Lor Rasmussen M.D. Ordering Physician: Lor Rasmussen M.D. Primary Care Physician: Sarah Primary Care Physician MEDICAL IMAGING REPORT This report is preliminary unless electronic signature is present EXAM Abdomen and pelvis CT no contrast 09/05/2016 INDICATIONS 75-year-old male with urinary tract infection and sepsis, bacteremia, and diarrhea for a week. Dimensions, COPD. TECHNIQUE Noncontrast abdomen and pelvis CT was performed. This CT exam was performed with one or more of the following radiation dose reduction techniques: automatic exposure control, adjustment of mA and/or kV according to patient size, and iterative reconstruction. COMPARISON No comparisons. FINDINGS CT ABDOMEN: Exam markedly degraded by noncontrast technique. There is motion degradation. There are small effusions, right greater than left. There is probable compressive atelectasis in the lung bases or, less likely pneumonia, left greater than right. Correlate with physical exam findings. There is underlying COPD. The heart is enlarged. Aorta demonstrates mild atherosclerotic change and is mildly tortuous. There is ectasia or borderline aneurysmal dilatation of the left common iliac artery measuring up to 18 mm. Just before the bifurcation of the internal and external iliac arteries on the right, there is an aneurysm measuring up to 2.5 cm. 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 Probable sequelae of prior vascular surgery or surgical intervention involving the right groin also noted. Correlate with surgical history. The vascular structures could be better assessed with dedicated CT angiography, if not previously performed and clinically desired or warranted. [facility] A Service of [facility] RADIOLOGY TEXT RESULTS PATIENT: FELISHA MADRID LOCATION: C3A 342-01 : 38 UNIT #: [id number] AGE: [address]: Lor Rasmussen MD SEX: M ORDER DR: There are granulomatous calcifications in the spleen. The adrenal glands demonstrate a benign myelolipoma in the right adrenal gland, measuring up to 13 mm. Pancreas atrophic. There is probable sequela of chronic calcific pancreatitis. Liver demonstrates probable mild cirrhotic morphology. It is otherwise unremarkable. Kidneys demonstrate atrophy and renal cysts. No radiopaque stone or hydronephrosis. The largest right renal cyst measures 3.9 cm. Small anterior abdominal wall hernia in the upper abdomen contains fat and omental vessels only. There is mild generalized anasarca. CT PELVIS: Prostate is enlarged. There is a Brito catheter present in the bladder. There is bladder wall thickening suspicious for mild cystitis, given the provided history, although this may simply reflect incomplete distension and/or sequela of chronic outlet obstruction, given prostatomegaly. Correlate with urinalysis. No drainable fluid collection in the pelvis. Stool burden is most characteristic of constipation. The appendix is normal. No bowel obstruction. Osseous structures demonstrate advanced degenerative change in the thoracolumbar spine. There is general straightening of the thoracolumbar curvature. Advanced degenerative disc disease at L5-S1. Probable Schmorl node deformity involving the inferior endplate of L5. No convincing evidence to suggest discitis on noncontrast CT. However, this could be better assessed with MRI, if the patient has risk factors for discitis or infection. There is multilevel thoracic spondylosis. IMPRESSION 1. Examination is degraded by noncontrast technique. 2. 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 The left internal iliac artery aneurysm measures up to 4.1 cm. There is at least ectasia and borderline aneurysmal dilatation of the left common iliac artery. This could be better assessed with dedicated CT angiography. 3. There is no aortic aneurysm. 4. Advanced degenerative change in the thoracolumbar spine, most severe at L5-S1 appearing to relate to advanced degenerative disc disease and, to a lesser extent, facet arthropathy. There is a probable Schmorl node deformity involving the inferior endplate of L5. No definitive evidence to suggest infection or discitis on CT. However, this could be better assessed with MRI with and without contrast, if there are risk factors for discitis or infection related to the lumbar spine in this patient. 5. Bilateral effusions with bibasilar atelectasis or infiltrates. 6. Mild cirrhotic morphology of the liver. 7. Incidental renal cysts. No hydronephrosis. 8. Wall thickening of the bladder which may relate to incomplete distension although cystitis could present similarly and should be correlated with urinalysis. 9. Appendix is normal. [facility]. [facility] A Service of [facility] RADIOLOGY TEXT RESULTS PATIENT: FELISHA MADRID LOCATION: [place] [address] : 38 UNIT #: [id number] AGE: [address]: Lor Rasmussen MD SEX: M ORDER DR: 10. Prostatomegaly. 11. Anasarca. 12. 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 13. Findings regarding the probable advanced degenerative change at L5-S1, but consideration of further evaluation with MRI called to the patient's nurse as a courtesy at the time of this dictation. STAT * RESULT Dictated by... Massimo Richards M.D. THIS IS AN ELECTRONICALLY VERIFIED REPORT Massimo Richards M.D. at 09/05/2016 7:55 PM REJI/solitario TD: 09/05/2016 18:09 JOB #: [id number] MEDICAL IMAGING REPORT Page 1 of 1 COPY
--- NOTE | ~2016-08-29 | CO ---
Unit #: [id number] #: [id number] Patient: SIENNA PEREZ [id number] [facility] [address] [facility]. [place], [place] [address] [id number] I MR#: [id number] NAME: SIENNA PEREZ ROOM: 342 Age: 75 Sex: M Admission Date: 08/30/2016 : 1940 Attending Physician: Lor Rasmussen M.D. Consultation Date: 09/07/2016 CONSULTATION REPORT REASON FOR CONSULTATION Followup. DISCUSSION Mr. Sienna Perez is a 75-year-old male, seen in room 342, bed 1, on 09/07/2016 at [facility]. The patient compliant with medication. The patient does not have any sitter. Compliant with medication, but still disorganized behavior and disorganized thought process. The patient unable to give any reliable information. Vital signs; temperature 98.5, heart rate 80, respiratory rate 16, blood pressure 131/86, and oxygen saturation 97%. The patient's transition social worker is currently working on placement such as [facility]. REVIEW OF SYSTEMS Complete review of systems is unremarkable except as mentioned above. MENTAL STATUS EXAMINATION General appearance, the patient dressed in hospital attire. Attention span and concentration, poor. Speech, rapid and somewhat rambling. Orientation in self. Mood and affect, labile. Thought process, circumstantial. Thought content, guarded and paranoid, but denied any thoughts of harming self or others. Recent and remote memory, poor. Language, fair. Fund of knowledge, impaired. Insight and judgment, impaired. DIAGNOSES Psychiatric: Major neurocognitive disorder secondary to Alzheimer disease with behavioral disturbances, F02.81. ASSESSMENT/PLAN Recommending at this time to continue with current combination of medication. If needed, we will make further adjustment of medication. Please feel free to call if any questions, telephone #[phone]. machine operator farmworker is currently working on appropriate placement for the patient. Dictated by... Marty Milian/yolanda TD: 09/07/2016 19:12 JOB #: [id number] Unit #: [id number] #: [id number] Patient: SIENNA PEREZ CONSULTATION REPORT Page 1 of 1 X Chavez Soria MD CONSULTATION REPORT
[~2016-08-29 16:43] MED LIST: ALBUTEROL17 GM INH; COMBIVENT U/D3 M1 INH
[2016-08-29 17:44] LABS: BASOPHIL% 0.4 % (0-2.5); EOSINOPHIL# 0.3 X10e3 (0-0.7); HEMATOCRIT 33.7 % (38.0-50.0); HEMOGLOBIN 10.4 gm/dL (13.0-16.0); LYMPHOCYTE# 1.6 X10e3 (1.0-3.5); LYMPHOCYTE% 16.6 % (17.0-45.0); MEAN CELL VOLUME 86.8 FL (83-96); MEAN CORPUSCULAR HEMOGLOBIN 26.9 PG (28-34); MEAN PLATELET VOLUME 7.7 FL (6.5-11.5); MONOCYTE# 0.4 X10e3 (0-1.0); MONOCYTE% 4.4 % (3.0-12.0); NEUTROPHIL# 7.5 X10e3 (1.5-7.1); NEUTROPHIL% 75.6 % (40-75); PLATELET COUNT 192 X10e3 (140-420); RED BLOOD COUNT 3.88 X10e (3.90-5.60); RED CELL DISTRIBUTION WIDTH 20.4 % (11.0-15.5); WHITE BLOOD COUNT 9.9 X10e3 (4.0-10.5)
[2016-08-29 17:47] LABS: URINE SOURCE CLEAN CATCH
[2016-08-29 17:47] LABS: DIFF IND NO
[2016-08-29 17:53] LABS: URINE APPEARANCE TURBID; URINE BILIRUBIN NEG (NEG); URINE BLOOD 3+ (NEG); URINE COLOR YELLOW; URINE GLUCOSE NEG (NEG); URINE KETONE NEG (NEG); URINE LEUKOCYTE ESTERASE 3+ (NEG); URINE NITRATE POS (NEG); URINE PROTEIN 2+ (NEG); URINE SPECIFIC GRAVITY 1.012 (1.003-1.035); URINE UROBILINOGEN 0.2 MG/DL (NEG)
[2016-08-29 17:55] LABS: CULTURE INDICATED? YES; U HYALINE CASTS AUWI 0-2 /[LPF]; URBCS1 AUWI 100-200 /[HPF] (0-2); URINE BACTERIA AUWI 4+ (NEGATIVE); URINE SQUAMOUS EPITHELIAL CELL NONE SEEN /[HPF]; UWBCS1 AUWI INNUM (0-5)
[2016-08-29 17:59] LABS: INR 1.1; PARTIAL THROMBOPLASTIN TIME 29.4 SECONDS (23.5-31.3); PROTHROMBIN TIME (PATIENT) 11.2 SECONDS (9.6-11.5)
[2016-08-29 18:13] LABS: ALBUMIN SERUM 1.8 g/dL (3.5-5.0); BILIRUBIN, DIRECT 0.1 mg/dL (0.0-0.2); BILIRUBIN,INDIRECT 0.2 mg/dL (0.0-0.9); BILIRUBIN,TOTAL 0.3 mg/dL (0.2-2.0); BUN/CREATININE RATIO 21.9; CALCIUM SERUM 8.2 mg/dL (8.4-10.2); CREATININE SERUM 2.1 mg/dL (0.6-1.4); GLOM FILT RATE Estimated 29.5 mL/min (>60); POTASSIUM 3.8 mmol/L (3.5-5.1); PROTEIN TOTAL SERUM 7.1 g/dL (6.0-8.3)
[2016-08-29] MEDS ORDERED: ASPIRIN EC81 M1 PO (22:15)
[2016-08-29] MEDS ORDERED: LIPITOR40 MG PO (22:15)
[2016-08-29] MEDS ORDERED: CLONIDINE HCL0.1 MG PO (22:16)
[2016-08-29] MEDS ORDERED: DEPAKENE250 MG PO (22:16)
[2016-08-29] MEDS ORDERED: DSS100 MG PO (22:17)
[2016-08-29] MEDS ORDERED: FINASTERIDE5 MG PO (22:18)
[2016-08-29] MEDS ORDERED: FERRO-TIME325 MG PO (22:18)
[2016-08-29] MEDS ORDERED: LASIX PO (22:19)
[2016-08-29] MEDS ORDERED: LISINOPRIL10 MG PO (22:21)
[2016-08-29] MEDS ORDERED: MELATONIN3 MG PO (22:21)
[2016-08-29] MEDS ORDERED: LORTAB 5-325 M1 EACH PO (23:57)
[2016-08-29] MEDS ORDERED: REMERON15 MG PO (23:57)
[2016-08-29] MEDS ORDERED: SEROQUEL50 M1 PO (23:58)
[2016-08-29] MEDS ORDERED: FLOMAX0.4 M1 PO (23:59)
[2016-08-30 05:53] LABS: BASOPHIL# 0.1 X10e3 (0-0.3); BASOPHIL% 0.6 % (0-2.5); EOSINOPHIL# 0.3 X10e3 (0-0.7); EOSINOPHIL% 2.5 % (0.0-7.0); HEMATOCRIT 30.5 % (38.0-50.0); HEMOGLOBIN 9.7 gm/dL (13.0-16.0); LYMPHOCYTE# 1.5 X10e3 (1.0-3.5); LYMPHOCYTE% 15.4 % (17.0-45.0); MEAN CELL VOLUME 85.7 FL (83-96); MEAN CORPUSCULAR HEMOGLOBIN 27.2 PG (28-34); MEAN CORPUSCULAR HGB CONC 31.8 g/dL (30-36); MEAN PLATELET VOLUME 7.7 FL (6.5-11.5); MONOCYTE# 0.7 X10e3 (0-1.0); MONOCYTE% 7.4 % (3.0-12.0); NEUTROPHIL# 7.4 X10e3 (1.5-7.1); NEUTROPHIL% 74.1 % (40-75); PLATELET COUNT 177 X10e3 (140-420); RED BLOOD COUNT 3.56 X10e (3.90-5.60); RED CELL DISTRIBUTION WIDTH 19.4 % (11.0-15.5); WHITE BLOOD COUNT 10.1 X10e3 (4.0-10.5)
[2016-08-30 05:56] LABS: DIFF IND NO
[2016-08-30 06:51] LABS: ALBUMIN SERUM 1.5 g/dL (3.5-5.0); BILIRUBIN,TOTAL 0.5 mg/dL (0.2-2.0); BUN/CREATININE RATIO 23.88; CALCIUM SERUM 8.3 mg/dL (8.4-10.2); CREATININE SERUM 1.8 mg/dL (0.6-1.4); GLOM FILT RATE Estimated 35.5 mL/min (>60); POTASSIUM 3.7 mmol/L (3.5-5.1); PROTEIN TOTAL SERUM 5.8 g/dL (6.0-8.3)
[2016-08-31 06:07] LABS: HEMATOCRIT 31.9 % (38.0-50.0); MEAN CELL VOLUME 87.1 FL (83-96); MEAN CORPUSCULAR HEMOGLOBIN 27.2 PG (28-34); MEAN CORPUSCULAR HGB CONC 31.2 g/dL (30-36); MEAN PLATELET VOLUME 7.4 FL (6.5-11.5); RED BLOOD COUNT 3.66 X10e (3.90-5.60); RED CELL DISTRIBUTION WIDTH 19.8 % (11.0-15.5); WHITE BLOOD COUNT 8.9 X10e3 (4.0-10.5)
[2016-08-31 06:49] LABS: BUN/CREATININE RATIO 24.11; CALCIUM SERUM 7.9 mg/dL (8.4-10.2); CREATININE SERUM 1.7 mg/dL (0.6-1.4); GLOM FILT RATE Estimated 38.1 mL/min (>60); POTASSIUM 3.8 mmol/L (3.5-5.1)
[2016-09-01 07:48] LABS: HEMATOCRIT 27.9 % (38.0-50.0); HEMOGLOBIN 8.9 gm/dL (13.0-16.0); MEAN CELL VOLUME 86.6 FL (83-96); MEAN CORPUSCULAR HEMOGLOBIN 27.6 PG (28-34); MEAN CORPUSCULAR HGB CONC 31.9 g/dL (30-36); MEAN PLATELET VOLUME 7.7 FL (6.5-11.5); RED BLOOD COUNT 3.22 X10e (3.90-5.60); RED CELL DISTRIBUTION WIDTH 19.7 % (11.0-15.5)
[2016-09-01 08:28] LABS: ALBUMIN SERUM 1.5 g/dL (3.5-5.0); BILIRUBIN,TOTAL 0.5 mg/dL (0.2-2.0); BUN/CREATININE RATIO 23.52; CALCIUM SERUM 7.5 mg/dL (8.4-10.2); CREATININE SERUM 1.7 mg/dL (0.6-1.4); GLOM FILT RATE Estimated 38.1 mL/min (>60); POTASSIUM 3.7 mmol/L (3.5-5.1); PROTEIN TOTAL SERUM 5.6 g/dL (6.0-8.3)
[2016-09-02 12:09] LABS: BASOPHIL% 0.7 % (0-2.5); EOSINOPHIL# 0.5 X10e3 (0-0.7); EOSINOPHIL% 8.4 % (0.0-7.0); HEMATOCRIT 27.8 % (38.0-50.0); HEMOGLOBIN 8.9 gm/dL (13.0-16.0); LYMPHOCYTE# 1.6 X10e3 (1.0-3.5); LYMPHOCYTE% 26.3 % (17.0-45.0); MEAN CELL VOLUME 86.3 FL (83-96); MEAN CORPUSCULAR HEMOGLOBIN 27.6 PG (28-34); MEAN CORPUSCULAR HGB CONC 31.9 g/dL (30-36); MEAN PLATELET VOLUME 7.4 FL (6.5-11.5); MONOCYTE# 0.3 X10e3 (0-1.0); MONOCYTE% 4.9 % (3.0-12.0); NEUTROPHIL# 3.7 X10e3 (1.5-7.1); NEUTROPHIL% 59.7 % (40-75); PLATELET COUNT 156 X10e3 (140-420); RED BLOOD COUNT 3.22 X10e (3.90-5.60); RED CELL DISTRIBUTION WIDTH 19.7 % (11.0-15.5); WHITE BLOOD COUNT 6.2 X10e3 (4.0-10.5)
[2016-09-02 12:11] LABS: DIFF IND NO
[2016-09-02 12:37] LABS: CALCIUM SERUM 7.8 mg/dL (8.4-10.2); CREATININE SERUM 1.5 mg/dL (0.6-1.4); GLOM FILT RATE Estimated 44.3 mL/min (>60); POTASSIUM 3.4 mmol/L (3.5-5.1)
[2016-09-03 06:50] LABS: BUN/CREATININE RATIO 20.71; CALCIUM SERUM 8.3 mg/dL (8.4-10.2); CREATININE SERUM 1.4 mg/dL (0.6-1.4); GLOM FILT RATE Estimated 48.1 mL/min (>60); POTASSIUM 3.7 mmol/L (3.5-5.1)
[2016-09-04 08:30] LABS: CALCIUM SERUM 7.7 mg/dL (8.4-10.2); CREATININE SERUM 1.6 mg/dL (0.6-1.4); POTASSIUM 3.6 mmol/L (3.5-5.1)
[2016-09-05 07:29] LABS: HEMATOCRIT 30.1 % (38.0-50.0); HEMOGLOBIN 9.4 gm/dL (13.0-16.0); MEAN CELL VOLUME 88.4 FL (83-96); MEAN CORPUSCULAR HEMOGLOBIN 27.5 PG (28-34); MEAN CORPUSCULAR HGB CONC 31.1 g/dL (30-36); MEAN PLATELET VOLUME 7.7 FL (6.5-11.5); RED BLOOD COUNT 3.41 X10e (3.90-5.60); RED CELL DISTRIBUTION WIDTH 20.5 % (11.0-15.5)
[2016-09-05 08:23] LABS: BUN/CREATININE RATIO 18.12; CREATININE SERUM 1.6 mg/dL (0.6-1.4); POTASSIUM 3.7 mmol/L (3.5-5.1)
[2016-09-06 13:43] LABS: HEMATOCRIT 28.6 % (38.0-50.0); HEMOGLOBIN 9.1 gm/dL (13.0-16.0); MEAN CELL VOLUME 87.3 FL (83-96); MEAN CORPUSCULAR HEMOGLOBIN 27.7 PG (28-34); MEAN CORPUSCULAR HGB CONC 31.7 g/dL (30-36); MEAN PLATELET VOLUME 7.5 FL (6.5-11.5); RED BLOOD COUNT 3.28 X10e (3.90-5.60); RED CELL DISTRIBUTION WIDTH 20.4 % (11.0-15.5); WHITE BLOOD COUNT 5.5 X10e3 (4.0-10.5)
[2016-09-06 14:10] LABS: BUN/CREATININE RATIO 20.76; CALCIUM SERUM 7.8 mg/dL (8.4-10.2); CREATININE SERUM 1.3 mg/dL (0.6-1.4); GLOM FILT RATE Estimated 52.6 mL/min (>60); POTASSIUM 3.4 mmol/L (3.5-5.1)
[2016-09-07 06:46] LABS: BUN/CREATININE RATIO 18.66; CREATININE SERUM 1.5 mg/dL (0.6-1.4); GLOM FILT RATE Estimated 44.3 mL/min (>60); POTASSIUM 3.7 mmol/L (3.5-5.1)
[2016-09-07 09:00] LABS: HEMATOCRIT 29.1 % (38.0-50.0); HEMOGLOBIN 9.2 gm/dL (13.0-16.0); MEAN CELL VOLUME 87.1 FL (83-96); MEAN CORPUSCULAR HEMOGLOBIN 27.5 PG (28-34); MEAN CORPUSCULAR HGB CONC 31.6 g/dL (30-36); MEAN PLATELET VOLUME 7.7 FL (6.5-11.5); RED BLOOD COUNT 3.34 X10e (3.90-5.60); WHITE BLOOD COUNT 6.5 X10e3 (4.0-10.5)
[2016-09-08 05:06] LABS: CREATININE,RANDOM URINE 78 mg/dL
[2016-09-08 05:07] LABS: TOTAL PROTEIN,RANDOM URINE 294 mg/dl (<10)
[2016-09-08 08:28] LABS: HEMATOCRIT 30.5 % (38.0-50.0); HEMOGLOBIN 9.4 gm/dL (13.0-16.0); MEAN CELL VOLUME 89.9 FL (83-96); MEAN CORPUSCULAR HEMOGLOBIN 27.6 PG (28-34); MEAN CORPUSCULAR HGB CONC 30.7 g/dL (30-36); MEAN PLATELET VOLUME 7.9 FL (6.5-11.5); RED BLOOD COUNT 3.39 X10e (3.90-5.60); RED CELL DISTRIBUTION WIDTH 20.7 % (11.0-15.5); WHITE BLOOD COUNT 6.8 X10e3 (4.0-10.5)
[2016-09-08 08:40] LABS: BUN/CREATININE RATIO 16.66; CALCIUM SERUM 7.9 mg/dL (8.4-10.2); CREATININE SERUM 1.5 mg/dL (0.6-1.4); GLOM FILT RATE Estimated 44.3 mL/min (>60); POTASSIUM 3.5 mmol/L (3.5-5.1)
[2016-09-09 08:23] LABS: BUN/CREATININE RATIO 16.66; CALCIUM SERUM 8.2 mg/dL (8.4-10.2); CREATININE SERUM 1.5 mg/dL (0.6-1.4); GLOM FILT RATE Estimated 44.3 mL/min (>60); POTASSIUM 3.6 mmol/L (3.5-5.1)
[2016-09-09 13:42] LABS: ARTERIAL BLD GAS O2 SATURATION 91.4 % (90.0-100.0); ARTERIAL BLOOD GAS CARBOXY HB 1.4 %sat (0.0-9.0); ARTERIAL BLOOD GAS HCO3 23.2 mmol/L; ARTERIAL BLOOD GAS MET HB 0.5 %sat (0.0-2.0); ARTERIAL BLOOD GAS PCO2 37.2 mmHg (35.0-45.0); ARTERIAL BLOOD GAS PO2 66.4 mmHg (80.0-100); ARTERIAL BLOOD GAS pH 7.403 (7.350-7.450); ARTERIAL DRAW? YES
[2016-09-09 17:46] LABS: URINE APPEARANCE TURBID; URINE BILIRUBIN NEG (NEG); URINE BLOOD 3+ (NEG); URINE COLOR YELLOW; URINE GLUCOSE NEG (NEG); URINE KETONE NEG (NEG); URINE LEUKOCYTE ESTERASE 3+ (NEG); URINE NITRATE POS (NEG); URINE PH 6.5 (5-8); URINE PROTEIN 2+ (NEG); URINE SPECIFIC GRAVITY 1.013 (1.003-1.035); URINE UROBILINOGEN 0.2 MG/DL (NEG)
[2016-09-09 17:48] LABS: URBCS1 AUWI 100-200 /[HPF] (0-2); URINE BACTERIA AUWI 4+ (NEGATIVE); URINE SQUAMOUS EPITHELIAL CELL NONE SEEN /[HPF]; UWBCS1 AUWI INNUM (0-5)
[2016-09-09 17:59] LABS: URINE YEAST PRESENT
[2016-09-10 06:55] LABS: BUN/CREATININE RATIO 16.66; CALCIUM SERUM 8.2 mg/dL (8.4-10.2); CREATININE SERUM 1.5 mg/dL (0.6-1.4); GLOM FILT RATE Estimated 44.3 mL/min (>60); POTASSIUM 3.8 mmol/L (3.5-5.1)
[2016-09-10 08:50] LABS: ARTERIAL BLOOD GAS ALLEN TEST NORMAL; ARTERIAL BLOOD GAS ART SITE LEFT BRACHIAL
[2016-09-11 05:36] LABS: HEMATOCRIT 28.2 % (38.0-50.0); HEMOGLOBIN 9.1 gm/dL (13.0-16.0); MEAN CORPUSCULAR HGB CONC 32.1 g/dL (30-36); MEAN PLATELET VOLUME 7.5 FL (6.5-11.5); RED BLOOD COUNT 3.24 X10e (3.90-5.60); RED CELL DISTRIBUTION WIDTH 20.6 % (11.0-15.5); WHITE BLOOD COUNT 7.8 X10e3 (4.0-10.5)
[2016-09-11 06:29] LABS: CALCIUM SERUM 7.9 mg/dL (8.4-10.2); CREATININE SERUM 1.5 mg/dL (0.6-1.4); GLOM FILT RATE Estimated 44.3 mL/min (>60); POTASSIUM 3.5 mmol/L (3.5-5.1)
[2016-09-12 00:35] LABS: COMPLEMENT C3 100 mg/dL (90-180); COMPLEMENT C4 36 mg/dL (16-47)
[2016-09-12 03:33] LABS: CREATININE,RANDOM URINE 65 mg/dL; TOTAL PROTEIN,RANDOM URINE 139 mg/dl (<10)
[2016-09-12 06:48] LABS: HEMATOCRIT 24.3 % (38.0-50.0); HEMOGLOBIN 7.9 gm/dL (13.0-16.0); MEAN CELL VOLUME 86.6 FL (83-96); MEAN CORPUSCULAR HEMOGLOBIN 28.1 PG (28-34); MEAN CORPUSCULAR HGB CONC 32.4 g/dL (30-36); MEAN PLATELET VOLUME 7.7 FL (6.5-11.5); RED BLOOD COUNT 2.81 X10e (3.90-5.60); RED CELL DISTRIBUTION WIDTH 20.3 % (11.0-15.5); WHITE BLOOD COUNT 5.6 X10e3 (4.0-10.5)
[2016-09-12 07:03] LABS: BUN/CREATININE RATIO 17.5; CALCIUM SERUM 7.8 mg/dL (8.4-10.2); CREATININE SERUM 1.6 mg/dL (0.6-1.4); POTASSIUM 4.1 mmol/L (3.5-5.1)
[2016-09-13 19:20] LABS: MYELOPEROXIDASE AB (PNL) <1.0 AI (<1.0); PROTEINASE-3 AB (PNL) <1.0 AI (<1.0)
[2016-09-14 22:58] LABS: UPE RAND ALPHA1 GLOB 4 % (()); UPE RAND PROT/CREAT 3037 (22-128); UPE RANDOM ALB (PNL) 38 % (()); UPE RANDOM ALPHA 2 GLOB 13 % (()); UPE RANDOM BETA GLOB 17 % (()); UPE RANDOM CREATININE 64.2 mg/dL (20-370); UPE RANDOM GAMMA GLOB 27 % (()); UPE RANDOM TOTAL PROTEIN (PNL) 195 mg/dL (5-25)
== END 2016-09-12 20:35 | DRG 698 ==
LOC: CED 16:43 → CEDOF 08-30 07:20 → C3A PCU 08-30 15:02
PROVIDERS: Emergency Medicine; Family Medicine; Internal Medicine; Internal Medicine Nephrology; Nurse Practitioner Family
PROC: B246ZZZ Ultrasonography of Right and Left Heart (ICD-10-PCS; 2016-08-30)
PROC: 02HV33Z Insertion of Infusion Device into Superior Vena Cava, Percutaneous Approach (ICD-10-PCS; principal; 2016-09-12)
PROC: B548ZZA Ultrasonography of Superior Vena Cava, Guidance (ICD-10-PCS; 2016-09-12)
DX: T83.511A Infection and inflammatory reaction due to indwelling urethral catheter, initial encounter (principal); A41.81 Sepsis due to Enterococcus; N17.9 Acute kidney failure, unspecified; G92 Toxic encephalopathy; I13.0 Hypertensive heart and chronic kidney disease with heart failure and stage 1 through stage 4 chronic kidney disease, or unspecified chronic kidney disease; I50.32 Chronic diastolic (congestive) heart failure; F05 Delirium due to known physiological condition; G30.9 Alzheimer's disease, unspecified; S99.929A Unspecified injury of unspecified foot, initial encounter; D64.9 Anemia, unspecified; R65.20 Severe sepsis without septic shock; I82.409 Acute embolism and thrombosis of unspecified deep veins of unspecified lower extremity; F02.81 Dementia in other diseases classified elsewhere, unspecified severity, with behavioral disturbance; I42.9 Cardiomyopathy, unspecified; N39.0 Urinary tract infection, site not specified; Y73.1 Therapeutic (nonsurgical) and rehabilitative gastroenterology and urology devices associated with adverse incidents; B95.62 Methicillin resistant Staphylococcus aureus infection as the cause of diseases classified elsewhere; N40.1 Benign prostatic hyperplasia with lower urinary tract symptoms; R33.8 Other retention of urine; I48.0 Paroxysmal atrial fibrillation; N18.3 Chronic kidney disease, stage 3 (moderate); I73.9 Peripheral vascular disease, unspecified; Z79.82 Long term (current) use of aspirin; J44.9 Chronic obstructive pulmonary disease, unspecified; R21 Rash and other nonspecific skin eruption; X58.XXXA Exposure to other specified factors, initial encounter; Z78.1 Physical restraint status; I25.10 Atherosclerotic heart disease of native coronary artery without angina pectoris; Z88.5 Allergy status to narcotic agent; Z88.0 Allergy status to penicillin; I08.3 Combined rheumatic disorders of mitral, aortic and tricuspid valves; E87.6 Hypokalemia; R80.9 Proteinuria, unspecified
CPT/HCPCS: 36415; 36600; 71010; 73600; 73610; 74176; 76937; 77001; 80048; 80053; 80076; 80200; 80202; 81003; 82570; 82803; 83605; 84156; 84166; 85025; 85027; 85610; 85730; 86021; 86160; 86850; 86900; 86901; 87040; 87077; 87086; 87088; 87186; 93306; 93970; 93971; 94640; 94760; 99285; C1751; J0360; J1630; J1642; J1650; J3260; J3370

== ENCOUNTER 2016-09-24 16:01 | Inpatient (IN) | payer MEDICARE ==
--- NOTE | ~2016-09-24 | EKG ---
PATIENT: FELISHA MADRID UNIT #: [id number] Ventricular Rate: 80 BPM Atrial Rate: 80 BPM P-R Interval: 120 ms QRS Duration: 144 ms Q-T Interval: 430 ms QTC Calculation(Bezet): 495 ms Calculated R Monroe: -35 degrees Calculated T Monroe: 120 degrees Diagnosis Line: Atrial-paced rhythm Diagnosis Line: Left axis deviation Diagnosis Line: Right bundle branch block with repolarization Diagnosis Line: abnormality Baseline wander Diagnosis Line: Abnormal ECG Diagnosis Line: When compared with ECG of 14-MAY-2016 13:26, Diagnosis Line: Electronic atrial pacemaker has replaced Ectopic Diagnosis Line: atrial rhythm Diagnosis Line: Nonspecific T wave abnormality, worse in Anterior Diagnosis Line: leads Diagnosis Line: Confirmed by DRISS SALEH MD ([id number]) on 09/26/2016 Diagnosis Line: 9:48:42 AM INTERPRETING MD: DELFINO ALONZO
--- NOTE | ~2016-09-24 | CO ---
Unit #: [id number] #: [id number] Patient: FELISHA PEREZ [id number] [address] [place], [place] [address] [id number] I MR#: [id number] NAME: FELISHA PEREZ ROOM: [facility] Age: 75 Sex: M Admission Date: 09/24/2016 : 1940 Attending Physician: Ryan Varghese M.D. Primary Care Physician: Sarah Primary Care Physician Consultation Date: 09/26/2016 CONSULTATION REPORT REASON FOR CONSULTATION Multiple colonic polyps. CONSULTING PHYSICIAN Dr. Au of GI Medicine. Thank you very much for asking us to see Mr. Gary Perez. HISTORY OF PRESENT ILLNESS He was admitted on 09/24/16 with rectal bleeding. He has a past medical history that is remarkable for chronic renal insufficiency, atrial fibrillation, congestive heart failure, peripheral vascular disease, BPH, COPD, coronary artery disease. He presented to the emergency room with rectal bleeding. He has dementia and is unable to give any history. He was resuscitated and placed in the intensive care unit. He received two units of packed RBCs. He was prepped for colonoscopy and had this performed today. This was performed by Dr. Au. Dr. Au found multiple small to medium sized flat polyps with a large polyp in the ascending colon. There was no blood present in the colon per his note and per the images. We are asked to see him at this time to evaluate for possible colectomy. PAST MEDICAL HISTORY 1. Chronic urinary retention. 2. Dementia. 3. Atrial fibrillation. 4. Congestive heart failure. 5. Peripheral vascular disease. 6. COPD. 7. Coronary artery disease. PAST SURGICAL HISTORY 1. Pacemaker placement. 2. Open heart surgery. 3. Probable cholecystectomy with large right subcostal incision. SOCIAL HISTORY He is currently in a fpc. No tobacco or alcohol use. FAMILY HISTORY Noncontributory. REVIEW OF SYSTEMS Unobtainable. Unit #: [id number] #: [id number] Patient: FELISHA PEREZ IMMUNIZATION STATUS Unknown. PHYSICAL EXAMINATION GENERAL APPEARANCE: Well-developed white male in no apparent distress, afebrile. VITAL SIGNS: Stable. NECK: Supple. No thyromegaly or adenopathy. BACK: No CVA or spinous tenderness. ABDOMEN: Flat, soft, nontender. The patient has two reducible ventral incisional hernias in the upper abdomen. He has a large right subcostal incision as well as as another hernia at the base of his sternotomy. DIAGNOSTIC STUDIES LABORATORY: CMP shows a glucose of 35, BUN 33, creatinine 1.9, chloride 116. Liver function studies are normal. PT is 13.1 with INR 1.2. White count is 8.2 with hemoglobin of 8.3, hematocrit 25.1 and a platelet count of 121,000. IMPRESSION A 75-year-old white male who had rectal bleeding and blood loss anemia. In terms of his colonoscopy, he had no blood present within the colon. On review of the images, none of the lesions have the appearance of something that could be the course of bleeding. They also did not have an obvious appearance of a malignancy but appear to have more of the appearance of a benign type of polyp. Biopsies were not obtained and no polyps were removed by Dr. Au to obtain a tissue diagnosis. None are even remotely close to causing obstruction. We have had a long conversation with the patient's sister, Taylor Perez, per telephone. She is his power of assistant city attorney. We have explained then in light of his dementia, multiple medical problems which creates a higher surgical risk, quality of life and the fact that none of these have the appearance of bleeding and none are close to obstruction, either of which would be the source of a more emergent situation. We feel it would be best to follow him expectantly. We have explained all the risks and benefits of surgery versus following these expectantly and she wishes to be conservative because of his dementia, multiple medical problems. If he does develop a more emergent situation, then she will make a determination whether or not to proceed with operative intervention. We have explained that if the patient does rebleed, he may need a bleeding scan to determine the source of bleeding. If it is colonic, then he may need a subtotal colectomy. She understands completely and requests we proceed with the current treatment plan. All was discussed with Dr. Au as well. Dictated by... Marty Hodgson TD: 09/26/2016 12:24 JOB #: [id number] CC: Ryan Varghese M.D. Marty Gastelum M.D. Unit #: [id number] #: [id number] Patient: LAW MERCYLONNY CONSULTATION REPORT Page 1 of 1 X Gabino Rolle MD CONSULTATION REPORT
--- NOTE | ~2016-09-24 | CR72 ---
[facility] A Service of [facility] & [facility] RADIOLOGY TEXT RESULTS PATIENT: FELISHA MADRID LOCATION: [facility] [place] [facility] : 38 UNIT #: [id number] AGE: [address]: Ryan Varghese MD SEX: M ORDER DR: [id number] [facility] [address] [place], [place] [address] [id number] I MR#: [id number] Acc #: [id number] NAME: FELISHA MADRID : 1940 SEX: M STUDY DATE/TIME: 09/26/2016 4:13 UNIT: [facility] ROOM: [facility] STUDY DESCRIPTION: CR Chest Single View Portable Attending Physician: Ryan Varghese M.D. Ordering Physician: Ryan Varghese M.D. Primary Care Physician: Primary Care Physician No MEDICAL IMAGING REPORT This report is preliminary unless electronic signature is present EXAM Portable chest HISTORY Lower GI bleed, shortness of air. COMPARISON 09/24/2016 FINDINGS Right upper extremity PICC line remains in place. Pacemaker defibrillator noted over the left chest with leads in expected position. There is extensive left-sided volume loss with shift of the mediastinal structures to left of midline. Cardiomegaly with prominence of pulmonary vasculature and interstitium could reflect CHF. Dictated by... Theresa Parker M.D. THIS IS AN ELECTRONICALLY VERIFIED REPORT Theresa Parker M.D. at 09/26/2016 10:33 PM Navya TD: 09/26/2016 05:18 JOB #: [id number] MEDICAL IMAGING REPORT Page 1 of 1 COPY
--- NOTE | ~2016-09-24 | DS ---
Unit #: [id number] #: [id number] Patient: FELISHA MADRID [id number] [address] [place], [place] [address] [id number] I MR#: [id number] NAME: FELISHA MADRID ROOM: 567 Age: 75 Sex: M Admission Date: 09/24/2016 : 1940 Discharge Date: 09/27/2016 Attending Physician: Ryan Varghese M.D. Primary Care Physician: No Primary Care Physician DISCHARGE SUMMARY ADMITTING DIAGNOSES 1. Rectal bleeding. 2. Acute blood loss anemia. FURTHER DIAGNOSES 1. Acute on chronic kidney injury. 2. Atrial fibrillation, rate controlled. 3. History of congestive heart failure. 4. History of dementia. 5. History of peripheral vascular disease. 6. Benign prostatic hypertrophy. 7. Chronic obstructive pulmonary disease. 8. Coronary artery disease. 9. Recent methicillin-resistant Staphylococcus aureus urinary tract infection, currently on vancomycin until October 11, 2016. 10. Urinary tract infection this hospitalization with providencia. 11. Colonic polyps. CONSULTANTS 1. Dr. Jesus Au. 2. Dr. Gabino Rolle. 3. Dr. Sigifredo Islas. 4. Dr. Centeno. PROCEDURE DONE Colonoscopy: Showed two large flat polypoidal masses, one in the ascending colon, one in the transverse colon. Both were biopsied. Multiple large polyps in the ascending colon and transverse colons, diverticulosis, internal hemorrhoids. HISTORY OF PRESENT ILLNESS The patient is a 75-year-old man with multiple medical problems including chronic kidney disease, congestive heart failure, peripheral vascular disease, BPH, COPD, CAD who presented to the emergency room from the skilled nursing mainly because of rectal bleeding. In the hospital course, his initial hemoglobin was 6.5. He was transfused blood. GI was consulted. He did have a colonoscopy. Multiple polyps were noted. Surgery was consulted. Dr. Gabino Rolle spoke with patient's sister, who is the patient's lvgao-gc-ljuqaubl, at length. Patient's sister requested no aggressive interventions at this point keeping into considerations multiple co-morbidities including dementia and multiple medical problems which he is facing at this point. His urine cultures came back positive for providencia. His antimicrobials were switched to cefepime today. Will continue with cefepime for seven more days. He also was seen by Unit #: [id number] #: [id number] Patient: FELISHA MADRID for ICU management and for history of COPD. He is close to baseline. He is confused pleasantly at his baseline. Today, I gave a call to patient's sister and she requested no further interventions and we are arranging for the transfer back to the skilled nursing today. PHYSICAL EXAMINATION On the day of the discharge, his physical examination: VITAL SIGNS: Temperature 98.4, pulse rate 81, respirations 18, blood pressure 117/80. GENERAL: The patient is alert, pleasantly confused. HEENT: Normocephalic and atraumatic. No icterus. PERRLA. Extraocular muscles intact. NECK: Supple. No JVD. HEART: S1, S2. Irregular. CHEST: Bilateral equal air entry. Clear to auscultation. ABDOMEN: Soft, nontender. EXTREMITIES: Mild edema. DISCHARGE MEDICATIONS 1. Pulmicort 0.5 mg nebulization twice a day. 2. Combivent 3 mL inhalation q.4 p.r.n. for shortness of breath. 3. Perforomist one puff twice a day. 4. Sodium bicarbonate 650 mg twice a day. 5. Flomax 0.4 mg in the evening. 6. Vancomycin IV until October 11, 2016. 7. Valproic acid 250 mg p.o. three times a day. 8. Remeron 15 mg at bedtime. 9. Risperdal 1 mg twice a day. 10. Colace 100 mg twice a day. 11. Lipitor 40 mg at bedtime. 12. Clonidine 0.1 mg p.o. b.i.d. Hold for systolic blood pressures less than 110 mmHg. 13. Ferrous sulfate 325 mg p.o. daily. 14. Proscar 5 mg daily. 15. Melatonin 3 mg at bedtime. 16. Aspirin 81 mg daily. 17. Cefepime 1 g IV q.12 for seven days until October 04, 2016. Plan discussed with the hospice case manager and she is arranging for an ambulance. Total time spent in his discharge, 40 minutes. Dictated by... Ryan Varghese M.D. Danelle TD: 09/27/2016 15:20 JOB #: [id number] Unit #: [id number] #: [id number] Patient: FELISHA MADRID DISCHARGE SUMMARY Page 1 of 1 X X DISCHARGE SUMMARY
--- NOTE | ~2016-09-24 | CO ---
Unit #: [id number] #: [id number] Patient: FELISHA PEREZ [id number] [address] [place], [place] [address] [id number] I MR#: [id number] NAME: FELISHA PEREZ ROOM: [facility] Age: 75 Sex: M Admission Date: 09/24/2016 : 1940 Attending Physician: Ryan Varghese M.D. Consultation Date: 09/24/2016 CONSULTATION REPORT REASON FOR CONSULTATION GI bleeding. HISTORY OF PRESENTING ILLNESS Mr. Perez is a 75-year-old gentleman with dementia, abnormal mental status, was sent from [facility] where he was found to have significant blood in the stool. The patient is unable to give much history, most of the history was from talking to the nurses and EMT. PAST MEDICAL HISTORY No history of GI procedures in the past. No history of GI bleeding in the past. He is not on any blood thinners. He has history of dementia, also with history of congestive heart failure, hypertension, peripheral artery disease, and AFib. MEDICATIONS At home include aspirin, Lipitor, clonidine, Depakene, finasteride, Lasix, lisinopril, melatonin, Lortab, Remeron, Seroquel, Flomax, Ventolin, and Combivent inhalers. ALLERGIES To penicillin and codeine. SOCIAL HISTORY Not able to obtain. FAMILY HISTORY Not able to obtain. REVIEW OF SYSTEMS Unable to obtain. PHYSICAL EXAMINATION VITAL SIGNS: Blood pressure on arrival was systolic of 74, currently at 110. GENERAL: The patient is unresponsive. CHEST: A few scattered rhonchi bilaterally. CARDIOVASCULAR: Regular rate and rhythm. No murmurs. ABDOMEN: Soft, nontender, and nondistended. Midline hernia. No rigidity or organomegaly. No ascites clinically. EXTREMITIES: Trace edema. NEURO: Deferred. DIAGNOSTIC STUDIES Unit #: [id number] #: [id number] Patient: FELISHA PEREZ LABORATORY RESULTS: Pending at this time. ASSESSMENT AND PLAN The patient with significant large lower gastrointestinal bleeding. No previous history of similar illness. No available information of any previous endoscopies or colonoscopies. The patient is a full code. We will plan on keeping an eye on the hemoglobin and transfuse as necessary. We will continue with supportive care and IV fluids for now. We will plan on putting on NG tube and to look for any upper gastrointestinal bleeding and also for potentially for bowel prep for colonoscopy. At this time, there was no family available to discuss. We will discuss with the admitting physician as well as family if we are able to get hold of. Continue with current treatment in the meantime. Dictated by... Marty Gastelum/yolanda TD: 09/25/2016 04:06 JOB #: [id number] CONSULTATION REPORT Page 1 of 1 X Jesus Au MD X CONSULTATION REPORT
--- NOTE | ~2016-09-24 | CR72 ---
[facility] A Service of [facility] RADIOLOGY TEXT RESULTS PATIENT: FELISHA MADRID LOCATION: [facility]ICCU3 CICCU3-17 : 38 UNIT #: [id number] AGE: [address]: Ryan Varghese MD SEX: M ORDER DR: [id number] [facility] [address] [place], [place] [address] [id number] I MR#: [id number] Acc #: [id number] NAME: FELISHA MADRID : 1940 SEX: M STUDY DATE/TIME: 09/24/2016 17:55 UNIT: CEDOF ROOM: 00055 STUDY DESCRIPTION: CR Chest Single View Portable Attending Physician: Lillie Cohen M.D. Ordering Physician: Avery Samuel D.O. Primary Care Physician: No Primary Care Physician MEDICAL IMAGING REPORT This report is preliminary unless electronic signature is present EXAM Portable chest, 09/24/2016 HISTORY A 75-year-old male with shortness of air for 2 days. COMPARISON STUDIES Chest 08/29/2016 FINDINGS 2 frontal views of the chest were performed. Both costophrenic angles are excluded from the exam. No large pleural effusions. No pneumothorax. Cardiomegaly is again noted with mild central vascular congestion. Left-sided AICD complex. Right-sided PICC line noted. The tip is not clearly visualize, but extends at least the level of the mid SVC. Median sternotomy wires. IMPRESSION 1. Costophrenic angles are excluded from the exam. There is stable cardiomegaly with mild central vascular congestion again noted. 2. Right PICC line. The tip is not clearly visualize, but extends to at least the level of the mid SVC. No pneumothorax. Dictated by... Bertrand Gomez M.D. THIS IS AN ELECTRONICALLY VERIFIED REPORT Bertrand Gomez M.D. at 09/25/2016 4:43 PM JET/chris [facility] A Service of [facility] RADIOLOGY TEXT RESULTS PATIENT: FELISHA MADRID LOCATION: [facility] CICCU3-17 : 38 UNIT #: [id number] AGE: [address]: Ryan Varghese MD SEX: M ORDER DR: TD: 09/24/2016 23:01 JOB #: [id number] MEDICAL IMAGING REPORT Page 1 of 1 COPY
--- NOTE | ~2016-09-24 | HP ---
Unit #: [id number] #: [id number] Patient: FELISHA MADRID [id number] [place], [place] [address] [id number] I MR#: [id number] NAME: FELISHA MADRID ROOM: 77269 Age: 75 Sex: M Admission Date: 09/24/2016 : 1940 Attending Physician: Lillie Cohen M.D. Primary Care Physician: Primary Care Physician No HISTORY AND PHYSICAL CHIEF COMPLAINT Rectal bleeding. HISTORY OF PRESENT ILLNESS The patient is a 75-year-old male with past medical history of chronic kidney disease, atrial fibrillation, CHF, peripheral vascular disease, BPH, COPD, coronary artery disease, who presented to the emergency department from the detention for evaluation of the above. The patient is unable to provide history due to baseline dementia. The patient was apparently noted to have blood in his bed. He was sent to the emergency department. Initial blood pressure is listed in the computer as 159/132; however, blood pressures dipped in the 70s systolic during the course of his evaluation. He was noted to be actively bleeding bright red blood per rectum. A fecal management system is currently in place and the bag has 400 mL of bright red blood. Hemoglobin is 6.5. Two units of packed red blood cells have been ordered. He is being admitted to [facility] for evaluation and further treatment. The patient has already been seen by Dr. Au who plans for colonoscopy. PAST MEDICAL HISTORY 1. Admission to [facility] 08/30 through 09/12/2016 for sepsis secondary to MRSA urinary tract infection. He was also noted to have enterobacter bacteremia. He was discharged to the detention on vancomycin with a stop date of 10/11/2016. 2. Chronic urinary retention. 3. Dementia with agitation. 4. Atrial fibrillation. 5. Congestive heart failure with unknown ejection fraction. 6. Peripheral vascular disease. 7. BPH. 8. COPD. 9. Coronary artery disease. 10. Chronic kidney disease. The patient has seen Dr. Islas in the past. PAST SURGICAL HISTORY Pacemaker placement. SOCIAL HISTORY The patient is currently at a detention. His code status is a FULL CODE per detention documentation. FAMILY HISTORY Unobtainable. Unit #: [id number] #: [id number] Patient: FELISHA MADRID REVIEW OF SYSTEMS Unobtainable due to baseline dementia. PHYSICAL EXAMINATION VITAL SIGNS: Temperature 97.2, blood pressure 159/132 but has dropped to the 70s systolic, pulse 81, oxygen saturation was 90% on room air. GENERAL: The patient is a male who is awake and alert. HEENT: conjunctivae are pale. NECK: Supple. Trachea is midline. LUNGS: Relatively clear to auscultation bilaterally with no increased work of breathing. HEART: Regular rate and rhythm. ABDOMEN: Soft. Bowel sounds present in all four quadrants. He does not appear to be tender. He has approximately 400 mL in the bag attached to his fecal management system. EXTREMITIES: No pedal edema. He does have petechiae involving his feet. NEUROLOGIC: Patient is not oriented to person, place, or time. He is unable to provide history. He does not follow commands. He is moving all extremities. PSYCHIATRIC: Unable to assess. SKIN: The patient does have wounds on his feet, present on admission, there is a wound on the left lateral malleolus as well as the right heel. DIAGNOSTIC STUDIES LABORATORY: Troponin is less than 0.05. INR is 1.3. Comprehensive metabolic panel is notable for potassium of 3, glucose 137, BUN 39, creatinine 2.2, calcium 7.4 that corrects when albumin of 1.4 is accounted for, total protein 4.8. Complete blood count notable for hemoglobin 6.5, hematocrit 20.7, MCV 89.6, RDW 20.2. CARDIOVASCULAR: EKG shows atrial paced rhythm with a rate of 80 beats per minute. ASSESSMENT The patient is a 75-year-old male with: 1. Symptomatic anemia. The patient's hemoglobin was 7.9 on 09/12/2016, it is 6.5 today. 2. Gastrointestinal bleed. Two units of packed red blood cells have been ordered. 3. Jntje-nf-jnrewdm kidney disease. The patient's creatinine was 1.6 on 09/12/2016, it is 2.2 today. 4. Hypokalemia. 5. Atrial fibrillation. 6. Congestive heart failure with unknown ejection fraction. 7. History of peripheral vascular disease. 8. Benign prostatic hypertrophy. 9. Chronic obstructive pulmonary disease. 10. Coronary artery disease. 11. Foot wounds present on admission. PLAN 1. Admit to ICU. 2. N.p.o. 3. Hemoglobin and hematocrit 1 hour after transfusion and q.6 h. 4. Hold aspirin. 5. Will plan to transfuse for hemoglobin less than 8 due to history of coronary artery disease. Unit #: [id number] #: [id number] Patient: FELISHA MADRID 6. Consult Dr. Au regarding GI bleed. He has already seen the patient. 7. Consult Dr. Centeno regarding ICU admission. 8. Call for systolic blood pressure less than 90. 9. Consult Dr. Sigifredo Islas regarding ayixf-hs-jhofdqd kidney disease. 10. Replace potassium. 11. Check magnesium level. 12. Serial cardiac enzymes. 13. Strict I's and O's. 14. Check urinalysis with culture and sensitivity. 15. Supplemental oxygen. 16. P.r.n. DuoNeb. 17. SCDs. 18. Wound Care consult regarding foot wounds. 19. Repeat labs in the morning. 20. Additional workup and consultants based on above. 21. Regarding CODE STATUS: The patient is a FULL CODE. Forty-two minutes critical care time spent in the care of this patient (6:30 to 7:12 p.m.). Dictated by Marty Plasencia/andrea TD: 09/24/2016 20:14 JOB #: [id number] HISTORY AND PHYSICAL Page 1 of 1 X Lillie Cohen MD X HISTORY AND PHYSICAL
--- NOTE | ~2016-09-24 | EKG ---
PATIENT: FELISHA MADRID UNIT #: [id number] Ventricular Rate: 80 BPM Atrial Rate: 80 BPM P-R Interval: 120 ms QRS Duration: 144 ms Q-T Interval: 430 ms QTC Calculation(Bezet): 495 ms Calculated R [place]: -35 degrees Calculated T [place]: 120 degrees Diagnosis Line: Atrial-paced rhythm Diagnosis Line: Left axis deviation Diagnosis Line: Right bundle branch block with repolarization Diagnosis Line: abnormality Baseline wander Diagnosis Line: Abnormal ECG Diagnosis Line: When compared with ECG of 14-MAY-2016 13:26, Diagnosis Line: Electronic atrial pacemaker has replaced Ectopic Diagnosis Line: atrial rhythm Diagnosis Line: Nonspecific T wave abnormality, worse in Anterior Diagnosis Line: leads Diagnosis Line: Confirmed by DRISS SALEH MD ([id number]), publication editor Diagnosis Line: SUSANNA FULTON ([id number]) on 09/26/2016 11:20:37 AM INTERPRETING MD: DELFINO ALONZO
--- NOTE | ~2016-09-24 | EKG ---
PATIENT: FELISHA MADRID UNIT #: [id number] Ventricular Rate: 80 BPM Atrial Rate: 80 BPM P-R Interval: 120 ms QRS Duration: 144 ms Q-T Interval: 430 ms QTC Calculation(Bezet): 495 ms Calculated R [place]: -35 degrees Calculated T [place]: 120 degrees Diagnosis Line: Atrial-paced rhythm Diagnosis Line: Left axis deviation Diagnosis Line: Right bundle branch block with repolarization Diagnosis Line: abnormality Baseline wander Diagnosis Line: Abnormal ECG Diagnosis Line: When compared with ECG of 14-MAY-2016 13:26, Diagnosis Line: Electronic atrial pacemaker has replaced Ectopic Diagnosis Line: atrial rhythm Diagnosis Line: Nonspecific T wave abnormality, worse in Anterior Diagnosis Line: leads Diagnosis Line: Confirmed by DRISS SALEH MD ([id number]) on 09/26/2016 Diagnosis Line: 9:48:42 AM Diagnosis Line: Also confirmed by DRISS SALEH MD ([id number]), web editor Diagnosis Line: SUSANNA FULTON ([id number]) on 09/26/2016 11:17:21 AM INTERPRETING MD: DELFINO ALONZO
--- NOTE | ~2016-09-24 | OR ---
Unit #: [id number] #: [id number] Patient: FELISHA MADRID [id number] [address] [place], [place] [address] [id number] I MR#: [id number] NAME: FELISHA MADRID ROOM: 567 Date of Procedure: 09/26/2016 Admission Date: 09/24/2016 Surgeon: Jesus Au M.D. : 1940 Attending Physician: Ryan Varghese M.D. OPERATIVE REPORT JOB NOTE: CC: PRIMARY CARE PHYSICIAN PROCEDURE PERFORMED Colonoscopy with biopsies. INDICATIONS FOR PROCEDURE The patient presented with significant lower GI bleeding, also with anemia, undergoing evaluation with colonoscopy in the ICU. MEDICATIONS Monitored anesthesia. POSTOPERATIVE FINDINGS 1. Colonoscopy completed to cecum. Prep was adequate. 2. Two large flat polypoidal masses, one in ascending colon, one in transverse colon, both were biopsied separately and sent for histopathology. 3. Multiple large polyps seen in ascending colon and transverse colon area. They were left alone. 4. Diverticulosis. 5. Internal hemorrhoids. PLAN If definitive treatment may be needed, the patient will need subtotal colectomy as these polyps and masses seemed to be too large and could possibly malignant, we will review the biopsies as they are available. Given his overall morbidity and mortality, I would recommend no further treatment and watch for any further bleeding and transfuse only if needed, consider hospice treatment also. DESCRIPTION OF PROCEDURE The patient was explained of the procedure, risks, and benefits along with risks and benefits of anesthesia. We brought the Endo team to the ICU. Monitored anesthesia was given. Scope was passed up the rectum, advanced under direct vision all the way to the cecum. Findings have been described. Multiple biopsies taken. Gently, I pulled the scope out. Retroflexion was done in rectum, large internal hemorrhoids noted. Scope was gently pulled out. He tolerated it well. No immediate complications. Dictated by... Unit #: [id number] #: [id number] Patient: FELISHA MADRID Marty Gastelum/yolanda TD: 09/26/2016 11:13 JOB #: [id number] OPERATIVE REPORT Page 1 of 1 X Jesus Au MD PROCEDURE OPERATIVE NOTE
--- NOTE | ~2016-09-24 | CO ---
Unit #: [id number] #: [id number] Patient: FELISHA MADRID [id number] [address] [place], [place] [address] [id number] I MR#: [id number] NAME: FELISHA MADRID ROOM: [facility] Age: 75 Sex: M Admission Date: 09/24/2016 : 1940 Attending Physician: Ryan Varghese M.D. Consultation Date: 09/25/2016 CONSULTATION REPORT REASON FOR CONSULTATION Elevated creatinine level. HISTORY OF PRESENT ILLNESS The patient is a 75-year-old white male with known history of hypertension, chronic atrial fibrillation, peripheral vascular disease, history of CHF with an ejection fraction of 15% to 20% previously. Baseline creatinine 1 to 1.5 in the last year with discharge creatinine of 1.5 on 09/13/2016. He was sent in with GI bleed. The patient has previous history of UTI, had enterococcus and MRSA UTI previously. The patient has history of BPH and indwelling Brito catheter. The patient is not reported to have fevers, chills, vomiting, diarrhea. The creatinine today is noted to be 2.2. PAST MEDICAL HISTORY Significant for CHF, ejection fraction 15% to 20%; chronic atrial fibrillation; COPD; history of BPH with indwelling Brito on a chronic basis; peripheral vascular disease; coronary artery disease; CKD clinically attributed to hypertensive nephrosclerosis and creatinine level of 1 to 1.5. ALLERGIES Penicillin and codeine. SOCIAL HISTORY The patient is a care home resident. REVIEW OF SYSTEMS Not reliably available. PHYSICAL EXAMINATION GENERAL: The patient is awake and likely underlying dementia. VITAL SIGNS: Temperature 97.5, heart rate is 80 per minute, the blood pressure 101/62. HEENT: Head is atraumatic. Extraocular movements are intact. Sclerae are anicteric. NECK: Supple. There is no elevation of the JVD. CHEST: Clear. Air entry is equal bilaterally. Breathing is vesicular in nature. HEART: S1 and S2 audible. There is no S3, no S4. ABDOMEN: Soft. There is no organomegaly. No guarding. No rigidity. No rebound tenderness. EXTREMITIES: There is no edema. PHARMACOVIGILANCE SCIENTIST: Grossly intact. Unit #: [id number] #: [id number] Patient: FELISHA MADRID DIAGNOSTIC STUDIES LABORATORY RESULTS: Sodium is 144, potassium is 3.5, chloride is 112, CO2 is 23, BUN is 39, creatinine is 2.2, calcium is 7.5, glucose is 99. Urinalysis; 3+ leukocyte esterase and numerous wbc's, rbc's and likely underlying chronic cystitis with Brito catheter. WBCs 14, H and H are 8.2 and 25.2, platelets is 151. IMPRESSION 1. Acute kidney injury likely secondary to volume depletion, prerenal azotemia, less likely to have acute tubular necrosis. Unlikely to have a postinfectious glomerulonephritis. The patient is a care home resident and a poor candidate for chemotherapy, so I will not work him up for paraproteinemia at this point. We will follow the patient with you. Volume is acceptable. We will gently hydrate until the H and H are stabilized and documented. 2. Likely underlying chronic colonization, might consider Urology consultation to follow up. We will defer antibiotics at this time. 3. Gastrointestinal bleed. Gastrointestinal workup in progress. 4. Coronary artery disease. 5. Cardiomyopathy, ejection fraction 15% to 20%. 6. Hypokalemia, supplement. 7. Anemia. Follow H and H. Dictated by... Marty Campoverde TD: 09/26/2016 01:18 JOB #: [id number] CONSULTATION REPORT Page 1 of 1 X Sigifredo Islas MD CONSULTATION REPORT
[~2016-09-24 16:01] MED LIST changes: +ASPIRIN EC81 M1 PO; +CLONIDINE HCL0.1 MG PO; +DEPAKENE250 MG PO; +DSS100 MG PO; +FERRO-TIME325 MG PO; +FINASTERIDE5 MG PO; +FLOMAX0.4 M1 PO; +LASIX PO; +LIPITOR40 MG PO; +LISINOPRIL10 MG PO; +LORTAB 5-325 M1 EACH PO; +MELATONIN3 MG PO; +REMERON15 MG PO; +SEROQUEL50 M1 PO
[2016-09-24 16:54] LABS: POC - CKMB 1.3 ng/mL (0.0-7.9); POC - TROPONIN <0.05 ng/mL (<=0.05)
[2016-09-24] MEDS ORDERED: SEROQUEL PO (17:04)
[2016-09-24 17:08] LABS: BASOPHIL# 0.1 X10e3 (0-0.3); BASOPHIL% 0.8 % (0-2.5); EOSINOPHIL# 0.2 X10e3 (0-0.7); EOSINOPHIL% 1.7 % (0.0-7.0); HEMATOCRIT 20.7 % (38.0-50.0); LYMPHOCYTE# 1.8 X10e3 (1.0-3.5); LYMPHOCYTE% 18.8 % (17.0-45.0); MEAN CELL VOLUME 89.6 FL (83-96); MEAN CORPUSCULAR HEMOGLOBIN 28.2 PG (28-34); MEAN CORPUSCULAR HGB CONC 31.5 g/dL (30-36); MEAN PLATELET VOLUME 8.1 FL (6.5-11.5); MONOCYTE# 0.5 X10e3 (0-1.0); MONOCYTE% 5.1 % (3.0-12.0); NEUTROPHIL% 73.6 % (40-75); PLATELET COUNT 165 X10e3 (140-420); RED BLOOD COUNT 2.31 X10e (3.90-5.60); RED CELL DISTRIBUTION WIDTH 20.2 % (11.0-15.5); WHITE BLOOD COUNT 9.5 X10e3 (4.0-10.5)
[2016-09-24] MEDS ORDERED: PERFOROMIS20 MCG/2 M INH (17:08)
[2016-09-24] MEDS ORDERED: PULMICORT0.5 MG/21 INH (17:08)
[2016-09-24] MEDS ORDERED: TYL325 PO (17:09)
[2016-09-24] MEDS ORDERED: ANTACID650 MG PO (17:09)
[2016-09-24] MEDS ORDERED: LOVENOX30 MG/0.3 INJ (17:10)
[2016-09-24] MEDS ORDERED: VANCOMYCIN HCL1 GM (17:11)
[2016-09-24] MEDS ORDERED: HYDRALAZINE HCL50 MG PO (17:11)
[2016-09-24] MEDS ORDERED: RISPERDAL1 M1 PO (17:12)
[2016-09-24] MEDS ORDERED: PROSCAR5 MG PO (17:12)
[2016-09-24] MEDS ORDERED: HALDOL PO (17:12)
[2016-09-24] MEDS ORDERED: METOPROLOL SUC100 MG PO (17:13)
[2016-09-24] MEDS ORDERED: CATAPRES0.1 MG PO (17:14)
[2016-09-24 17:17] LABS: DIFF IND YES; HEMOGLOBIN 6.5 gm/dL (13.0-16.0)
[2016-09-24 17:20] LABS: ALBUMIN SERUM 1.4 g/dL (3.5-5.0); ALKALINE PHOSPHATASE 84 U/L (32-92); ALT (SGPT) 14 U/L (10-40); AST (SGOT) 19 U/L (10-42); BILIRUBIN,TOTAL 0.3 mg/dL (0.2-2.0); BLOOD UREA NITROGEN 39 mg/dL (9-23); BUN/CREATININE RATIO 17.72; CALCIUM SERUM 7.4 mg/dL (8.4-10.2); CARBON DIOXIDE 26 mmol/L (22-31); CHLORIDE 111 mmol/L (100-111); CREATININE SERUM 2.2 mg/dL (0.6-1.4); GLOM FILT RATE Estimated 27.9 mL/min (>60); GLUCOSE FASTING 137 mg/dL (70-110); PROTEIN TOTAL SERUM 4.8 g/dL (6.0-8.3); SODIUM 144 mmol/L (135-145)
[2016-09-24 17:21] LABS: INR 1.3; PARTIAL THROMBOPLASTIN TIME 31.1 SECONDS (23.5-31.3); PROTHROMBIN TIME (PATIENT) 13.3 SECONDS (9.6-11.5)
[2016-09-24 17:24] LABS: BILIRUBIN, DIRECT <0.1 mg/dL (0.0-0.2); BILIRUBIN,INDIRECT 0.2 mg/dL (0.0-0.9)
[2016-09-24 17:58] LABS: PLATELET ESTIMATE NORMAL (NORMAL); POIKILOCYTOSIS MOD
[2016-09-24 20:12] LABS: POC - CKMB 1.1 ng/mL (0.0-7.9); POC - TROPONIN <0.05 ng/mL (<=0.05)
[2016-09-24 21:57] LABS: URINE SOURCE CLEAN CATCH
[2016-09-24 22:14] LABS: CULTURE INDICATED? YES; URBCS1 AUWI INNUM /[HPF] (0-2); URINE APPEARANCE TURBID; URINE BACTERIA AUWI 4+ (NEGATIVE); URINE BILIRUBIN NEG (NEG); URINE BLOOD 3+ (NEG); URINE COLOR ORANGE; URINE GLUCOSE NEG (NEG); URINE KETONE NEG (NEG); URINE LEUKOCYTE ESTERASE 3+ (NEG); URINE NITRATE POS (NEG); URINE PROTEIN 1+ (NEG); URINE SPECIFIC GRAVITY 1.018 (1.003-1.035); URINE SQUAMOUS EPITHELIAL CELL MOD /[HPF]; UWBCS1 AUWI INNUM (0-5)
[2016-09-24 22:23] LABS: URINE CRYSTALS TRIPLE PHOSPHATE /[HPF]
[2016-09-25 01:20] LABS: HEMATOCRIT 25.4 % (38.0-50.0); HEMOGLOBIN 8.3 gm/dL (13.0-16.0)
[2016-09-25 01:40] LABS: CK TOTAL 59 IU/L (36-174)
[2016-09-25 05:51] LABS: BASOPHIL# 0.1 X10e3 (0-0.3); BASOPHIL% 0.4 % (0-2.5); EOSINOPHIL% 0.3 % (0.0-7.0); HEMATOCRIT 25.2 % (38.0-50.0); HEMOGLOBIN 8.2 gm/dL (13.0-16.0); LYMPHOCYTE# 2.3 X10e3 (1.0-3.5); LYMPHOCYTE% 16.8 % (17.0-45.0); MEAN CELL VOLUME 89.1 FL (83-96); MEAN CORPUSCULAR HEMOGLOBIN 28.9 PG (28-34); MEAN CORPUSCULAR HGB CONC 32.4 g/dL (30-36); MEAN PLATELET VOLUME 8.1 FL (6.5-11.5); MONOCYTE# 0.8 X10e3 (0-1.0); MONOCYTE% 5.5 % (3.0-12.0); NEUTROPHIL# 10.8 X10e3 (1.5-7.1); PLATELET COUNT 151 X10e3 (140-420); RED BLOOD COUNT 2.82 X10e (3.90-5.60); RED CELL DISTRIBUTION WIDTH 18.2 % (11.0-15.5)
[2016-09-25 05:56] LABS: DIFF IND NO
[2016-09-25 06:08] LABS: INR 1.2; PROTHROMBIN TIME (PATIENT) 13.1 SECONDS (9.6-11.5)
[2016-09-25 06:32] LABS: CK TOTAL 56 IU/L (36-174)
[2016-09-25 06:33] LABS: ALBUMIN SERUM 1.7 g/dL (3.5-5.0); BILIRUBIN,TOTAL 0.5 mg/dL (0.2-2.0); BUN/CREATININE RATIO 17.72; CALCIUM SERUM 7.5 mg/dL (8.4-10.2); CREATININE SERUM 2.2 mg/dL (0.6-1.4); GLOM FILT RATE Estimated 27.9 mL/min (>60); MAGNESIUM 1.8 mg/dL (1.6-3.0); POTASSIUM 3.5 mmol/L (3.5-5.1); PROTEIN TOTAL SERUM 5.3 g/dL (6.0-8.3)
[2016-09-25 13:07] LABS: ARTERIAL BLD GAS O2 SATURATION 93.7 % (90.0-100.0); ARTERIAL BLOOD GAS CARBOXY HB 1.6 %sat (0.0-9.0); ARTERIAL BLOOD GAS HCO3 24.5 mmol/L; ARTERIAL BLOOD GAS MET HB 0.8 %sat (0.0-2.0); ARTERIAL BLOOD GAS PCO2 38.7 mmHg (35.0-45.0); ARTERIAL BLOOD GAS pH 7.411 (7.350-7.450)
[2016-09-25 13:08] LABS: ARTERIAL BLOOD GAS ALLEN TEST NORMAL; ARTERIAL BLOOD GAS ART SITE LEFT BRACHIAL; ARTERIAL BLOOD GAS DELIVERY NASAL CANNULA; ARTERIAL BLOOD GAS PO2 74.2 mmHg (80.0-100); ARTERIAL DRAW? YES
[2016-09-25 13:51] LABS: HEMOGLOBIN 7.4 gm/dL (13.0-16.0)
[2016-09-26 05:30] LABS: BASOPHIL# 0.1 X10e3 (0-0.3); BASOPHIL% 0.8 % (0-2.5); EOSINOPHIL# 0.3 X10e3 (0-0.7); EOSINOPHIL% 3.1 % (0.0-7.0); HEMATOCRIT 25.1 % (38.0-50.0); HEMOGLOBIN 8.3 gm/dL (13.0-16.0); LYMPHOCYTE% 24.7 % (17.0-45.0); MEAN CORPUSCULAR HEMOGLOBIN 28.5 PG (28-34); MEAN CORPUSCULAR HGB CONC 33.2 g/dL (30-36); MEAN PLATELET VOLUME 7.4 FL (6.5-11.5); MONOCYTE# 0.6 X10e3 (0-1.0); MONOCYTE% 7.3 % (3.0-12.0); NEUTROPHIL# 5.3 X10e3 (1.5-7.1); NEUTROPHIL% 64.1 % (40-75); PLATELET COUNT 121 X10e3 (140-420); RED BLOOD COUNT 2.92 X10e (3.90-5.60); RED CELL DISTRIBUTION WIDTH 19.7 % (11.0-15.5); WHITE BLOOD COUNT 8.2 X10e3 (4.0-10.5)
[2016-09-26 05:36] LABS: DIFF IND NO
[2016-09-26 06:38] LABS: ALBUMIN SERUM 1.5 g/dL (3.5-5.0); BILIRUBIN,TOTAL 0.5 mg/dL (0.2-2.0); BUN/CREATININE RATIO 17.36; CALCIUM SERUM 7.4 mg/dL (8.4-10.2); CREATININE SERUM 1.9 mg/dL (0.6-1.4); GLOM FILT RATE Estimated 33.3 mL/min (>60); POTASSIUM 3.5 mmol/L (3.5-5.1); PROTEIN TOTAL SERUM 4.7 g/dL (6.0-8.3)
[2016-09-27 05:45] LABS: HEMATOCRIT 25.2 % (38.0-50.0); HEMOGLOBIN 8.2 gm/dL (13.0-16.0); MEAN CELL VOLUME 87.2 FL (83-96); MEAN CORPUSCULAR HEMOGLOBIN 28.5 PG (28-34); MEAN CORPUSCULAR HGB CONC 32.7 g/dL (30-36); MEAN PLATELET VOLUME 7.8 FL (6.5-11.5); RED BLOOD COUNT 2.89 X10e (3.90-5.60); RED CELL DISTRIBUTION WIDTH 20.1 % (11.0-15.5); WHITE BLOOD COUNT 8.9 X10e3 (4.0-10.5)
[2016-09-27 06:21] LABS: ALBUMIN SERUM 1.6 g/dL (3.5-5.0); BILIRUBIN,TOTAL 0.4 mg/dL (0.2-2.0); BUN/CREATININE RATIO 16.87; CALCIUM SERUM 7.5 mg/dL (8.4-10.2); CREATININE SERUM 1.6 mg/dL (0.6-1.4); POTASSIUM 3.9 mmol/L (3.5-5.1); PROTEIN TOTAL SERUM 4.8 g/dL (6.0-8.3)
== END 2016-09-27 21:00 | DRG 377 ==
LOC: CED 16:01 → CEDOF 18:55 → CED 18:55 → CICCU3 18:55 → C5C 18:55 → CICCU3 19:33 → CEDOF 19:33 → CED 19:33 → CICCU3 23:26 → CEDOF 23:26 → CICCU3 09-25 07:18 → C5C 09-26 13:41
PROVIDERS: Emergency Medicine; Family Medicine; Internal Medicine; Internal Medicine Nephrology; Nurse Practitioner
PROC: B246ZZZ Ultrasonography of Right and Left Heart (ICD-10-PCS; 2016-09-25)
PROC: 0DBK8ZX Excision of Ascending Colon, Via Natural or Artificial Opening Endoscopic, Diagnostic (ICD-10-PCS; principal; 2016-09-26 09:04)
PROC: 0DBL8ZX Excision of Transverse Colon, Via Natural or Artificial Opening Endoscopic, Diagnostic (ICD-10-PCS; 2016-09-26 09:04)
DX: K62.5 Hemorrhage of anus and rectum (principal); R57.1 Hypovolemic shock; N18.4 Chronic kidney disease, stage 4 (severe); N17.9 Acute kidney failure, unspecified; I42.9 Cardiomyopathy, unspecified; I13.0 Hypertensive heart and chronic kidney disease with heart failure and stage 1 through stage 4 chronic kidney disease, or unspecified chronic kidney disease; I50.32 Chronic diastolic (congestive) heart failure; D62 Acute posthemorrhagic anemia; N39.0 Urinary tract infection, site not specified; I25.10 Atherosclerotic heart disease of native coronary artery without angina pectoris; I48.91 Unspecified atrial fibrillation; J44.9 Chronic obstructive pulmonary disease, unspecified; F03.90 Unspecified dementia, unspecified severity, without behavioral disturbance, psychotic disturbance, mood disturbance, and anxiety; I73.9 Peripheral vascular disease, unspecified; N40.0 Benign prostatic hyperplasia without lower urinary tract symptoms; D12.2 Benign neoplasm of ascending colon; D12.3 Benign neoplasm of transverse colon; K57.30 Diverticulosis of large intestine without perforation or abscess without bleeding; K64.8 Other hemorrhoids; E87.6 Hypokalemia; Z90.49 Acquired absence of other specified parts of digestive tract; S91.302A Unspecified open wound, left foot, initial encounter; S91.301A Unspecified open wound, right foot, initial encounter; Z88.5 Allergy status to narcotic agent; Z88.0 Allergy status to penicillin; Z91.013 Allergy to seafood
CPT/HCPCS: 36415; 36430; 36600; 71010; 80048; 80053; 80076; 80202; 81003; 82308; 82550; 82553; 82652; 82803; 83605; 83735; 84484; 85014; 85018; 85025; 85027; 85610; 85730; 86850; 86900; 86901; 86923; 87040; 87086; 87088; 87186; 88305; 90732; 93005; 93306; 94640; 94760; 99285; G0009; J0696; J3370; P9016